=== PATIENT | female | born 1930 | race Caucasian/White ===

== ENCOUNTER 2016-06-15 09:38 | Outpatient (CLI) | payer MEDICARE ==
[2016-06-15 10:15] LABS: ALT (SGPT) 22 U/L (0-55); AST (SGOT) 27 U/L (5-34); Albumin 3.9 g/dL (3.4-4.8); Alkaline Phosphatase 64 U/L (40-150); Anion Gap 12 mmol/L (10-20); BUN (Urea Nitrogen) 16 mg/dL (9.8-20.1); Bilirubin, Total 0.8 mg/dL (0.2-1.2); Calc. Creatinine Clearance 0 mL/min (70-130); Calcium 9.1 mg/dL (7.8-10.44); Carbon Dioxide 28 mmol/L (23-31); Cardiac Risk 2.4 (Less than 4.5); Chloride 103 mmol/L (98-107); Cholesterol 134 mg/dL (< 200 Desired); Estimated GFR-MDRD 48; Globulin 2.8 g/dL (2.4-3.5); Glucose 92 mg/dL (83-110); HDL Cholesterol 56 mg/dL (>60 Neg Risk); LDL Cholesterol, Calculated 62 mg/dL; Potassium 4.4 mmol/L (3.5-5.1); Protein, Total 6.7 g/dL (5.8-8.1); Sodium 139 mmol/L (136-145); Triglycerides 79 mg/dL (Less than 150)
== END 2016-06-15 09:39 | disposition home or self-care (01) ==
LOC: MADLAB 09:38
PROVIDERS: ATTEND Internal Medicine Cardiovascular Disease
DX: E78.00 Pure hypercholesterolemia, unspecified (principal)
CPT/HCPCS: 36415; 80053; 80061

== ENCOUNTER 2017-03-21 09:06 | Emergency (ER) | payer MEDICARE ==
[2017-03-21 10:30] LABS: Bilirubin Negative (Negative); Blood, Urine Negative (Negative); Clarity Clear (Clear); Glucose, Urine (Dipstick) Negative (Negative); Leukocyte Negative (Negative); Nitrite Negative (Negative); Protein, Urine (Dipstick) 30 mg/dL (Neg-Trace); RBC/HPF 0-3 HPF (0-3); Specific Gravity, Urine 1.015 (1.005-1.030); pH, Urine 8.5 (5.0-9.0)
[2017-03-21 10:31] LABS: Bacteria/HPF Rare-Few HPF (None Seen); Squamous Epithelial 0-3 HPF (0-3); WBC/HPF 0-3 HPF (0-3)
[2017-03-21] MEDS ORDERED: Iopamidol 370 76% 100 ML VIAL ONE (10:31)
[2017-03-21 10:51] LABS: #Basophils 0.1 thou/uL (0.0-0.2); #Eosinphils 0.4 thou/uL (0.0-0.7); #Lymphocytes 1.9 thou/uL (1.20-3.40); #Monocytes 0.9 thou/uL (0.11-0.59); #Neutrophils 5.2 thou/uL (1.40-6.50); %Basophils 0.8 % (0.0-1.0); %Eosinophils 4.6 % (0.0-10.0); %Lymphocytes 22.8 % (21.0-51.0); %Monocytes 10.7 % (0.0-10.0); %Neutrophils 61.1 % (42.0-75.0); Hemoglobin 12.5 g/dL (12.0-16.0); Mean Corpuscular HGB CONC 32.5 g/dL (32.0-36.0); Mean Corpuscular Hemoglobin 32.6 pg (27.0-31.0); Mean Corpuscular Volume 100.4 fl (81.0-99.0); Mean Platelet Volume 8.7 fL (7.4-10.4); Platelet Count 150 thou/uL (130-400); RBC Distribution Width 11.9 % (11.5-14.5); Red Blood Cell (RBC) Count 3.84 mill/uL (4.20-5.40); White Blood Cell (WBC) Count 8.5 thou/uL (4.8-10.8)
--- NOTE | 2017-03-21 11:03 | RAD ---
PORTABLE CHEST ONE VIEW: 03/21/2017 10:27 a.m. HISTORY: Upper abdominal pain. COMPARISON: 01/09/2015 FINDINGS: Changes of median sternotomy are again seen. The heart is enlarged. A left-sided pacemaker device r emains in place. The lungs are well expanded without focal areas of consolidation, pneumothorax, fra nk pulmonary edema, or pleural effusions. IMPRESSION: No radiographic evidence of an acute cardiopulmonary process. POS: [facility]
[2017-03-21 11:10] LABS: ALT (SGPT) 17 U/L (8-55); AST (SGOT) 28 U/L (5-34); Albumin 3.7 g/dL (3.4-4.8); Alkaline Phosphatase 61 U/L (40-150); Anion Gap 13 mmol/L (10-20); BUN (Urea Nitrogen) 14 mg/dL (9.8-20.1); Bilirubin, Total 0.7 mg/dL (0.2-1.2); Calc. Creatinine Clearance 0 mL/min (70-130); Calcium 8.8 mg/dL (7.8-10.44); Carbon Dioxide 28 mmol/L (23-31); Chloride 105 mmol/L (98-107); Estimated GFR-MDRD 65; Globulin 3.2 g/dL (2.4-3.5); Glucose 107 mg/dL (83-110); Lipase 14 U/L (8-78); Potassium 3.9 mmol/L (3.5-5.1); Protein, Total 6.9 g/dL (6.0-8.3); Sodium 142 mmol/L (136-145)
[2017-03-21] MEDS ORDERED: Ketorolac Tromethamine 30 MG/ML VIAL ONE (11:30)
[2017-03-21] MEDS ORDERED: Ondansetron HCl/PF 4 MG/2 ML Vial ONE (11:30)
--- NOTE | 2017-03-21 14:07 | CT ---
CTA ABDOMEN AND PELVIS WITH IV AND ENTERIC CONTRAST: 03/21/2017 PROVIDED CLINICAL HISTORY: Right upper quadrant pain. COMPARISON: 12/30/2014 FINDINGS: The visualized lung bases are free of significant opacity. There is a large hiatal hernia, containin g the majority of the stomach, similar to prior study. The gallbladder is conspicuously distended. There is apparent gallbladder wall thickening and possib ly minimal pericholecystic inflammatory fat stranding. There is no evidence for intrahepatic or extr ahepatic biliary ductal dilatation. The liver, spleen, pancreas, kidneys, and adrenal glands demonst rate no acute abnormality. Stable, nonobstructing left renal calculi are seen, measuring about 3 to 4 mm. There is no bowel dilatation, additional inflammatory fat stranding, free air, or lymph node enlargem ent apparent. There is trace free fluid present within the pelvis. The appendix is not distinctly i dentified, but there is no secondary evidence for acute appendicitis. Atherosclerotic vascular calcifications are noted involving the abdominal aorta and its branches. The osseous structures demonstrate no concerning osteoblastic or osteolytic lesions. There is a left inguinal hernia, which contains fat and a small amount of fluid, similar to the prior study. IMPRESSION: 1. Conspicuous gallbladder distention, along with apparent gallbladder wall thickening and possibly pericholecystic inflammatory fat stranding. Correlation with a right upper quadrant ultrasound or HI DA scan is recommended, as findings are concerning for acute cholecystitis. 2. Small amount of nonspecific free pelvic fluid. 3. Other chronic findings, as above. POS: [facility]
[2017-03-21] MEDS ORDERED: Sulfameth/Trimethoprim DS 800-160mg TAB ONE (15:23)
[2017-03-21] MEDS ORDERED: AMOXicillin 250 MG CAP ONE (15:23)
== END 2017-03-21 15:00 | disposition home or self-care (01) ==
LOC: MADERS 09:06
DX: K81.0 Acute cholecystitis (principal); E78.5 Hyperlipidemia, unspecified; G40.909 Epilepsy, unspecified, not intractable, without status epilepticus; I25.10 Atherosclerotic heart disease of native coronary artery without angina pectoris; I48.91 Unspecified atrial fibrillation; I10 Essential (primary) hypertension
CPT/HCPCS: 36415; 71010; 74177; 80053; 81001; 82150; 83690; 85025; 87086; 96374; 96375; J1885; J2405

== ENCOUNTER 2017-03-25 21:31 | Emergency (ER) | payer MEDICARE ==
[~2017-03-25 21:31] MED LIST: Sodium Chloride 0.9% 1,000 ML BAG ONE; Sodium Chloride 0.9% 100 ML BAG ONE
[2017-03-25] MEDS ORDERED: Morphine 4 MG/ML VIAL ONE (22:22)
[2017-03-25] MEDS ORDERED: Ketorolac Tromethamine 30 MG/ML VIAL ONE (22:23)
[2017-03-25] MEDS ORDERED: Ondansetron HCl/PF 4 MG/2 ML Vial ONE (22:23)
[2017-03-25] MEDS ORDERED: CEFAZOLIN 1 GM VIAL ONE ×2 (22:23→23:04)
[2017-03-25 22:32] LABS: PTT 69.2 SEC (22.9-36.1); Prothrombin Time 40.8 SEC (12.0-14.7)
--- NOTE | 2017-03-25 22:36 | RAD ---
AP VIEW OF THE CHEST: INDICATIONS: History of preop. COMPARISON: 03/21/2017 FINDINGS: Stable mild cardiomegaly. Midline sternotomy changes are similar appearing. A dual-lead pacemaker i s similar appearing. No focal consolidation is evident. No pleural effusion or pneumothorax is evid ent. IMPRESSION: No definite acute abnormality. POS: [facility]
[2017-03-25 22:43] LABS: ALT (SGPT) 18 U/L (8-55); Albumin 3.9 g/dL (3.4-4.8); Alkaline Phosphatase 59 U/L (40-150); CK (CPK) 153 U/L (29-168); Calc. Creatinine Clearance 0 mL/min (70-130); Calcium 9.2 mg/dL (7.8-10.44); Chloride 101 mmol/L (98-107); Estimated GFR-MDRD 42; Globulin 3.3 g/dL (2.4-3.5); Potassium 3.9 mmol/L (3.5-5.1); Protein, Total 7.2 g/dL (6.0-8.3); Sodium 136 mmol/L (136-145)
[2017-03-25 22:49] LABS: CKMB 1.5 ng/mL (0-6.6); Hemoglobin 12.1 g/dL (12.0-16.0); Mean Corpuscular HGB CONC 33.9 g/dL (32.0-36.0); Mean Corpuscular Hemoglobin 33.4 pg (27.0-31.0); Mean Corpuscular Volume 98.4 fl (81.0-99.0); Platelet Count 132 thou/uL (130-400); RBC Distribution Width 11.6 % (11.5-14.5); Red Blood Cell (RBC) Count 3.63 mill/uL (4.20-5.40); Troponin I Less than 0.010 ng/mL (< 0.028); White Blood Cell (WBC) Count 6.5 thou/uL (4.8-10.8)
[2017-03-25 22:55] LABS: Band 3 % (5-11); Lymphocytes 18 % (21-51); MDiff Complete? YES; Monocytes 3 % (0-10); Neutrophil 75 % (42-75)
[2017-03-25 23:18] LABS: AST (SGOT) 33 U/L (5-34); BUN (Urea Nitrogen) 10 mg/dL (9.8-20.1); Bilirubin, Total 0.3 mg/dL (0.2-1.2); Carbon Dioxide 25 mmol/L (23-31); Glucose 130 mg/dL (83-110)
[2017-03-25 23:21] LABS: Anion Gap 14 mmol/L (10-20)
== END 2017-03-25 23:10 | disposition short-term general hospital (02) ==
LOC: MADERS 21:31
DX: K81.0 Acute cholecystitis (principal); I11.0 Hypertensive heart disease with heart failure; I50.9 Heart failure, unspecified; R79.89 Other specified abnormal findings of blood chemistry; E78.5 Hyperlipidemia, unspecified; I25.10 Atherosclerotic heart disease of native coronary artery without angina pectoris; Z79.899 Other long term (current) drug therapy
CPT/HCPCS: 36415; 71010; 80053; 82553; 83880; 84484; 85025; 85610; 85652; 85730; 93005; 94760; 96365; 96375; J0690; J1885; J2270; J2405; J7050

== ENCOUNTER 2017-04-30 20:49 | Emergency (ER) | payer MEDICARE ==
[~2017-04-30 20:49] MED LIST changes: +Iopamidol 370 76% 100 ML VIAL ONE; -Sodium Chloride 0.9% 1,000 ML BAG ONE; -Sodium Chloride 0.9% 100 ML BAG ONE
[2017-04-30 22:04] LABS: #Eosinphils 0.2 thou/uL (0.0-0.7); #Lymphocytes 1.4 thou/uL (1.20-3.40); #Monocytes 0.6 thou/uL (0.11-0.59); #Neutrophils 6.2 thou/uL (1.40-6.50); %Basophils 0.6 % (0.0-1.0); %Eosinophils 2.7 % (0.0-10.0); %Lymphocytes 16.3 % (21.0-51.0); %Monocytes 7.3 % (0.0-10.0); %Neutrophils 73.1 % (42.0-75.0); Mean Corpuscular HGB CONC 33.1 g/dL (32.0-36.0); Mean Corpuscular Hemoglobin 33.2 pg (27.0-31.0); Mean Corpuscular Volume 100.2 fl (81.0-99.0); Mean Platelet Volume 8.8 fL (7.4-10.4); Platelet Count 126 thou/uL (130-400); RBC Distribution Width 12.6 % (11.5-14.5); Red Blood Cell (RBC) Count 3.61 mill/uL (4.20-5.40); White Blood Cell (WBC) Count 8.5 thou/uL (4.8-10.8)
[2017-04-30 22:05] LABS: Bilirubin Negative (Negative); Blood, Urine Negative (Negative); Clarity Clear (Clear); Glucose, Urine (Dipstick) Negative (Negative); Leukocyte Negative (Negative); Nitrite Negative (Negative); Protein, Urine (Dipstick) 30 mg/dL (Neg-Trace); Specific Gravity, Urine 1.015 (1.005-1.030); pH, Urine 8.5 (5.0-9.0)
[2017-04-30 22:09] LABS: INR-International Normal Ratio 1.6; PTT 29.6 SEC (22.9-36.1); Prothrombin Time 19.2 SEC (12.0-14.7)
[2017-04-30 22:09] LABS: Bacteria/HPF None Seen HPF (None Seen); RBC/HPF 0-3 HPF (0-3); Squamous Epithelial 0-3 HPF (0-3); WBC/HPF 0-3 HPF (0-3)
[2017-04-30 22:10] LABS: Other Microscopic Description Tr. Amor. Sed.
[2017-04-30 22:20] LABS: ALT (SGPT) 19 U/L (8-55); AST (SGOT) 30 U/L (5-34); Albumin 3.6 g/dL (3.4-4.8); Alkaline Phosphatase 69 U/L (40-150); Anion Gap 14 mmol/L (10-20); BUN (Urea Nitrogen) 20 mg/dL (9.8-20.1); Bilirubin, Total 0.7 mg/dL (0.2-1.2); Calc. Creatinine Clearance 0 mL/min (70-130); Carbon Dioxide 25 mmol/L (23-31); Chloride 102 mmol/L (98-107); Estimated GFR-MDRD 52; Glucose 130 mg/dL (83-110); Lipase 26 U/L (8-78); Potassium 4.3 mmol/L (3.5-5.1); Protein, Total 6.6 g/dL (6.0-8.3); Sodium 137 mmol/L (136-145)
--- NOTE | 2017-04-30 22:28 | RAD ---
PORTABLE CHEST: History: Nausea, vomiting. Comparison: 03-26-17 FINDINGS: Mild cardiomegaly with post op sternotomy change and pacemaker leads again noted. Lungs appear clear and unchanged. No evidence of edema or infiltrate. Mild vascular engorgement appears stable. IMPRESSION: No acute interval change. POS: [facility]
--- NOTE | 2017-04-30 23:06 | CT ---
CT ABDOMEN AND PELVIS WITH IV CONTRAST: Technique: Multiple axial tomograms were obtained through the abdomen and pelvis with IV enhancement. History: Abdominal pain. Comparison: 03-26-17 FINDINGS: Lung bases are clear. There is a fixed diaphragmatic hernia which was described previously and is unc hanged in size. Patient is post cholecystectomy since prior study. The liver and spleen are unremarkable. Minimal flu id density at the gallbladder bed without evidence of abscess. Small bowel loops show nonspecific distention without dilation. No evidence of small bowel obstructio n. Colon is unremarkable. Aorta normal caliber. Fat containing left inguinal hernia is again noted. Kidneys are unremarkable. No hydronephrosis. IMPRESSION: 1. Fixed diaphragmatic hernia again noted. 2. Left inguinal hernia again noted. 3. Post cholecystectomy since prior exam. 4. No acute intraabdominal process identified. POS: [facility]
== END 2017-04-30 23:55 | disposition home or self-care (01) ==
LOC: MADERS 20:49
DX: K40.30 Unilateral inguinal hernia, with obstruction, without gangrene, not specified as recurrent (principal); E78.5 Hyperlipidemia, unspecified; I48.91 Unspecified atrial fibrillation; I25.10 Atherosclerotic heart disease of native coronary artery without angina pectoris; I12.9 Hypertensive chronic kidney disease with stage 1 through stage 4 chronic kidney disease, or unspecified chronic kidney disease; N18.9 Chronic kidney disease, unspecified; Z79.82 Long term (current) use of aspirin; Z79.01 Long term (current) use of anticoagulants; Z79.899 Other long term (current) drug therapy
CPT/HCPCS: 36415; 51701; 71045; 74177; 80053; 81003; 81015; 83605; 83690; 85025; 85610; 85730; 87040; 94760; A4353

== ENCOUNTER 2017-06-11 09:45 | Outpatient (CLI) | payer MEDICARE ==
[2017-06-11 10:26] LABS: ALT (SGPT) 18 U/L (8-55); AST (SGOT) 27 U/L (5-34); Alkaline Phosphatase 77 U/L (40-150); Anion Gap 13 mmol/L (10-20); BUN (Urea Nitrogen) 17 mg/dL (9.8-20.1); Calc. Creatinine Clearance 0 mL/min (70-130); Calcium 9.4 mg/dL (7.8-10.44); Carbon Dioxide 28 mmol/L (23-31); Cardiac Risk 2.3 (Less than 4.5); Cholesterol 113 mg/dl (< 200 Desired); Estimated GFR-MDRD 50; Glucose 97 mg/dL (83-110); HDL Cholesterol 49 mg/dL (>60 Neg Risk); LDL Cholesterol, Calculated 50 mg/dL; Triglycerides 69 mg/dL (Less than 150)
[2017-06-11 13:40] LABS: Potassium 4.1 mmol/L (3.5-5.1)
[2017-06-11 13:42] LABS: Chloride 102 mmol/L (98-107)
[2017-06-11 14:08] LABS: Sodium 140 mmol/L (136-145)
== END 2017-06-11 09:46 | disposition home or self-care (01) ==
LOC: MADLAB 09:45
PROVIDERS: ATTEND Internal Medicine Cardiovascular Disease
DX: E78.00 Pure hypercholesterolemia, unspecified (principal)
CPT/HCPCS: 36415; 80053; 80061

== ENCOUNTER 2017-10-02 10:17 | Outpatient (CLI) | payer MEDICARE ==
[2017-10-02 10:57] LABS: #Basophils 0.1 thou/uL (0.0-0.2); #Eosinphils 0.3 thou/uL (0.0-0.7); #Lymphocytes 1.7 thou/uL (1.20-3.40); #Monocytes 0.6 thou/uL (0.11-0.59); #Neutrophils 2.4 thou/uL (1.40-6.50); %Basophils 1.3 % (0.0-1.0); %Eosinophils 5.8 % (0.0-10.0); %Lymphocytes 34.2 % (21.0-51.0); %Monocytes 11.1 % (0.0-10.0); %Neutrophils 47.7 % (42.0-75.0); Hemoglobin 12.9 g/dL (12.0-16.0); Mean Corpuscular HGB CONC 32.9 g/dL (32.0-36.0); Mean Corpuscular Hemoglobin 31.3 pg (27.0-31.0); Mean Corpuscular Volume 95.2 fL (78.0-98.0); Mean Platelet Volume 7.7 fL (7.4-10.4); Platelet Count 138 thou/uL (130-400); RBC Distribution Width 12.2 % (11.5-14.5); Red Blood Cell (RBC) Count 4.11 mill/uL (4.20-5.40); White Blood Cell (WBC) Count 4.9 thou/uL (4.8-10.8)
[2017-10-02 11:13] LABS: INR-International Normal Ratio 2.5; Prothrombin Time 27.2 SEC (12.0-14.7)
[2017-10-02 11:24] LABS: ALT (SGPT) 18 U/L (8-55); AST (SGOT) 28 U/L (5-34); Albumin 3.8 g/dL (3.4-4.8); Alkaline Phosphatase 58 U/L (40-150); Anion Gap 15 mmol/L (10-20); BUN (Urea Nitrogen) 16 mg/dL (9.8-20.1); Bilirubin, Direct 0.3 mg/dL (0.1-0.3); Bilirubin, Total 0.8 mg/dL (0.2-1.2); Calc. Creatinine Clearance 0 mL/min (70-130); Calcium 9.3 mg/dL (7.8-10.44); Carbon Dioxide 26 mmol/L (23-31); Cardiac Risk 2.3 (Less than 4.5); Chloride 102 mmol/L (98-107); Cholesterol 121 mg/dl (< 200 Desired); Estimated GFR-MDRD 49; Glucose 99 mg/dL (83-110); HDL Cholesterol 52 mg/dL (>60 Neg Risk); LDL Cholesterol, Calculated 54 mg/dL; Potassium 4.3 mmol/L (3.5-5.1); Protein, Total 6.8 g/dL (6.0-8.3); Sodium 139 mmol/L (136-145); Triglycerides 73 mg/dL (Less than 150)
== END 2017-10-02 10:18 | disposition home or self-care (01) ==
LOC: MADLABBHPM 10:17
PROVIDERS: ATTEND Internal Medicine Cardiovascular Disease
DX: Z51.81 Encounter for therapeutic drug level monitoring (principal); E78.00 Pure hypercholesterolemia, unspecified; I48.91 Unspecified atrial fibrillation; N18.3 Chronic kidney disease, stage 3 (moderate); E78.5 Hyperlipidemia, unspecified; Z79.01 Long term (current) use of anticoagulants
CPT/HCPCS: 36415; 80053; 80061; 82248; 85025; 85610

== ENCOUNTER 2017-10-23 10:51 | Outpatient (CLI) | payer MEDICARE ==
[2017-10-23 11:30] LABS: #Basophils 0.1 thou/uL (0.0-0.2); #Eosinphils 0.3 thou/uL (0.0-0.7); #Lymphocytes 2.1 thou/uL (1.20-3.40); #Monocytes 0.7 thou/uL (0.11-0.59); #Neutrophils 2.9 thou/uL (1.40-6.50); %Basophils 1.1 % (0.0-1.0); %Eosinophils 5.6 % (0.0-10.0); %Lymphocytes 34.9 % (21.0-51.0); %Monocytes 11.2 % (0.0-10.0); %Neutrophils 47.3 % (42.0-75.0); Hemoglobin 14.3 g/dL (12.0-16.0); Mean Corpuscular HGB CONC 33.4 g/dL (32.0-36.0); Mean Corpuscular Hemoglobin 32.1 pg (27.0-31.0); Mean Corpuscular Volume 96.1 fL (78.0-98.0); Mean Platelet Volume 7.9 fL (7.4-10.4); Platelet Count 162 thou/uL (130-400); RBC Distribution Width 12.3 % (11.5-14.5); Red Blood Cell (RBC) Count 4.45 mill/uL (4.20-5.40)
[2017-10-23 11:34] LABS: INR-International Normal Ratio 3.1; Prothrombin Time 31.6 SEC (12.0-14.7)
[2017-10-23 11:42] LABS: Anion Gap 15 mmol/L (10-20); BUN (Urea Nitrogen) 12 mg/dL (9.8-20.1); Calc. Creatinine Clearance 0 mL/min (70-130); Calcium 9.6 mg/dL (7.8-10.44); Carbon Dioxide 29 mmol/L (23-31); Chloride 100 mmol/L (98-107); Estimated GFR-MDRD 47; Glucose 94 mg/dL (83-110); Potassium 4.3 mmol/L (3.5-5.1); Sodium 140 mmol/L (136-145)
== END 2017-10-23 10:52 | disposition home or self-care (01) ==
LOC: MADLABBHPM 10:51
PROVIDERS: ATTEND Family Medicine
DX: K92.1 Melena (principal)
CPT/HCPCS: 36415; 80048; 85025; 85610

== ENCOUNTER 2018-04-18 20:03 | Emergency (ER) | payer MEDICARE ==
[~2018-04-18 20:03] MED LIST changes: -Iopamidol 370 76% 100 ML VIAL ONE; +Sodium Chloride 0.9% 1,000 ML BAG ONE
[2018-04-18 20:26] LABS: #Eosinphils 0.1 thou/uL (0.0-0.7); #Monocytes 0.9 thou/uL (0.11-0.59); #Neutrophils 10.8 thou/uL (1.40-6.50); %Basophils 0.3 % (0.0-1.0); %Eosinophils 0.5 % (0.0-10.0); %Lymphocytes 7.4 % (21.0-51.0); %Monocytes 6.9 % (0.0-10.0); %Neutrophils 84.9 % (42.0-75.0); Hemoglobin 12.8 g/dL (12.0-16.0); Mean Corpuscular HGB CONC 32.4 g/dL (32.0-36.0); Mean Corpuscular Hemoglobin 33.2 pg (27.0-31.0); Mean Corpuscular Volume 102.4 fL (78.0-98.0); Mean Platelet Volume 8.4 fL (7.4-10.4); Platelet Count 142 thou/uL (130-400); RBC Distribution Width 12.1 % (11.5-14.5); Red Blood Cell (RBC) Count 3.86 mill/uL (4.20-5.40); White Blood Cell (WBC) Count 12.8 thou/uL (4.8-10.8)
[2018-04-18 20:44] LABS: ALT (SGPT) 21 U/L (8-55); AST (SGOT) 28 U/L (5-34); Albumin 3.6 g/dL (3.4-4.8); Alkaline Phosphatase 57 U/L (40-150); Anion Gap 13 mmol/L (10-20); BUN (Urea Nitrogen) 20 mg/dL (9.8-20.1); Calc. Creatinine Clearance 0 mL/min (70-130); Calcium 8.3 mg/dL (7.8-10.44); Carbon Dioxide 26 mmol/L (23-31); Chloride 104 mmol/L (98-107); Estimated GFR-MDRD 57; Globulin 2.8 g/dL (2.4-3.5); Glucose 112 mg/dL (83-110); Lipase 4 U/L (8-78); Potassium 4.2 mmol/L (3.5-5.1); Protein, Total 6.4 g/dL (6.0-8.3); Sodium 139 mmol/L (136-145)
[2018-04-18] MEDS ORDERED: Acetaminophen 500 MG TAB ONE (20:46)
[2018-04-18 21:04] LABS: Bilirubin Negative (Negative); Blood, Urine Trace (Negative); Clarity Clear (Clear); Glucose, Urine (Dipstick) Negative (Negative); Leukocyte Negative (Negative); Nitrite Negative (Negative); Protein, Urine (Dipstick) Trace mg/dL (Neg-Trace); Urobilinogen 0.2 mg/dL (0.2-1.0)
[2018-04-18 21:07] LABS: Bacteria/HPF Rare-Few HPF (None Seen); RBC/HPF 0-3 HPF (0-3); Squamous Epithelial 0-3 HPF (0-3); WBC/HPF 0-3 HPF (0-3)
[2018-04-18] MEDS ORDERED: Ondansetron PF 4 MG/2 ML Vial ONE (21:17)
[2018-04-18] MEDS ORDERED: Promethazine 25 MG TAB ONE (21:17)
[2018-04-18] MEDS ORDERED: Promethazine HCl 25 MG/ML VIAL ONE (21:17)
== END 2018-04-18 22:54 | disposition home or self-care (01) ==
LOC: MADERS 20:03
DX: K52.9 Noninfective gastroenteritis and colitis, unspecified (principal); E78.5 Hyperlipidemia, unspecified; I25.10 Atherosclerotic heart disease of native coronary artery without angina pectoris; I48.91 Unspecified atrial fibrillation; I12.9 Hypertensive chronic kidney disease with stage 1 through stage 4 chronic kidney disease, or unspecified chronic kidney disease; N18.9 Chronic kidney disease, unspecified
CPT/HCPCS: 51701; 80053; 81003; 81015; 83605; 83690; 85025; 96361; 96374; J2405; J2550; J7050

== ENCOUNTER 2018-10-07 08:37 | Outpatient (CLI) | payer MEDICARE ==
--- NOTE | 2018-10-07 11:11 | CT ---
CT CHEST WITHOUT COTNRAST: HISTORY: Chest pain in the region of the pacemaker. FINDINGS: Absence of IV contrast reduces the sensitivity of the exam, particularly for the evaluation of medias tinal, hilar, and vascular structures. There are changes of median sternotomy. Artifact surrounding the pacemaker in the left upper chest a lso reduces the sensitivity of the exam. No fluid or pericardial effusions are seen. No pneumothoraces, focal areas of consolidation, lung no dules, or masses are identified. There are degenerative changes in the spine. There are postop changes and hiatal hernia which are all seen on the previous study of 04/30/[address] scan of abdomen of 04/30/2017. No definite evidence of a fluid collection is seen in the region of the left pacemaker. There are nonobstructive renal calculi in the visualized portions of the left kidney. Calcified gran ulomas are present in the spleen. The patient is post cholecystectomy. IMPRESSION: The etiology of the patient's chest pain is not evident on this exam. POS: [facility]
== END 2018-10-07 08:38 | disposition home or self-care (01) ==
LOC: MADCT 08:37
PROVIDERS: ATTEND Nurse Practitioner Family
DX: R07.9 Chest pain, unspecified (principal)
CPT/HCPCS: 71250

== ENCOUNTER 2019-05-15 09:44 | Outpatient (CLI) | payer MEDICARE ==
[2019-05-15 10:12] LABS: INR-International Normal Ratio 2.9; Prothrombin Time 29.7 SEC (12.0-14.7)
--- NOTE | 2019-05-15 10:15 | RAD ---
EXAM: Chest 2 views: HISTORY: Shortness of breath COMPARISON: 10/13/2014 FINDINGS: Stable large hiatal hernia. Postop midline sternotomy, valvular replacement, and left ICD. Heart size:Borderline enlarged. Lungs:Clear of acute process. Atherosclerotic changes of the aorta. No confluent pneumonia, overt edema, pleural effusion, pneumothorax, or other significant acute proce ss. IMPRESSION: Stable-appearing chest. Atherosclerosis of the aorta. No acute intrathoracic disease.
== END 2019-05-15 09:45 | disposition home or self-care (01) ==
LOC: MADLABBHPM 09:44
PROVIDERS: ATTEND Internal Medicine Cardiovascular Disease
DX: R06.02 Shortness of breath (principal); I70.0 Atherosclerosis of aorta
CPT/HCPCS: 36415; 71046; 85610

== ENCOUNTER 2019-09-16 06:09 | Inpatient (IN) | payer MEDICARE, OTHER ==
[2019-09-16] MEDS ORDERED: Cyclobenzaprine 10 MG TAB PO PRN (21:18)
[2019-09-16] MEDS ORDERED: Amlodipine 5 MG TAB PO SCH (21:45)
[2019-09-16] MEDS ORDERED: hydrALAZINE 10 MG TAB PO SCH (21:45)
[2019-09-16] MEDS ORDERED: Simvastatin 20 MG TAB PO SCH (21:45)
[2019-09-16] MEDS ORDERED: lamoTRIgine 25 MG TAB PO SCH (22:30)
[2019-09-16] MEDS ORDERED: Senokot S 8.6-50 MG TAB PO SCH (22:30)
[2019-09-16] MEDS ORDERED: PHOS-NAK 1 PKT PACK PO SCH (22:30)
[2019-09-16] MEDS: Acetaminophen 500 MG TAB PO PRN (22:54)
[2019-09-17 05:47] LABS: INR-International Normal Ratio 1.2; Prothrombin Time 14.7 sec (12.0-14.7)
[2019-09-17 05:56] LABS: ALT (SGPT) 224 U/L (8-55); AST (SGOT) 136 U/L (5-34); Albumin 2.8 g/dL (3.4-4.8); Alkaline Phosphatase 106 U/L (40-110); Anion Gap 12 mmol/L (10-20); BUN (Urea Nitrogen) 12 mg/dL (9.8-20.1); Bilirubin, Total 0.8 mg/dL (0.2-1.2); Calc. Creatinine Clearance 54 mL/min (70-130); Calcium 8.1 mg/dL (7.8-10.44); Carbon Dioxide 27 mmol/L (23-31); Chloride 101 mmol/L (98-107); Estimated GFR-MDRD 64; Globulin 2.5 g/dL (2.4-3.5); Glucose 124 mg/dL (83-110); Potassium 4.2 mmol/L (3.5-5.1); Protein, Total 5.3 g/dL (6.0-8.3); Sodium 136 mmol/L (136-145)
[2019-09-17 05:59] LABS: Hemoglobin 8.1 g/dL (12.0-16.0); Lymphocytes 20 % (21-51); MDiff Complete? YES; Mean Corpuscular Hemoglobin 34.1 pg (27.0-31.0); Mean Corpuscular Volume 100.1 fL (78.0-98.0); Mean Platelet Volume 9.3 fL (7.4-10.4); Monocytes 9 % (0-10); Neutrophil 71 % (42-75); Platelet Count 111 thou/uL (130-400); RBC Distribution Width 12.1 % (11.5-14.5); Red Blood Cell (RBC) Count 2.38 mill/uL (4.20-5.40); White Blood Cell (WBC) Count 9.8 thou/uL (4.8-10.8)
[2019-09-17] MEDS ORDERED: Fleet Enema 133 ML BOT PR SCH (08:15)
[2019-09-17] MEDS: Ondansetron ODT 4 MG TAB PO PRN ×2 (08:54→18:21)
[2019-09-17] MEDS: Amlodipine 5 MG TAB PO SCH ×2 (09:00→20:33)
[2019-09-17] MEDS: hydrALAZINE 10 MG TAB PO SCH ×2 (09:00→20:33)
[2019-09-17] MEDS: Aspirin 81 mg Enteric Coated Tablet PO SCH (10:14)
[2019-09-17] MEDS: Propafenone HCl 150 MG TAB PO SCH ×3 (10:14→20:42)
[2019-09-17] MEDS: PHOS-NAK 1 PKT PACK PO SCH ×2 (10:14→20:31)
[2019-09-17] MEDS: Furosemide 20 MG TAB PO SCH (10:16)
[2019-09-17] MEDS: Polyethylene Glycol 3350 17 GM Packet PO SCH (10:17)
[2019-09-17] MEDS: Senokot S 8.6-50 MG TAB PO SCH ×2 (10:17→20:31)
[2019-09-17] MEDS: Acetaminophen/Codeine 30-300mg Tablet PO PRN (10:30)
--- NOTE | 2019-09-17 11:04 | HP ---
Admitted to [facility] on the evening of 09/16/2019. CHIEF COMPLAINT: Weakness following left hip fracture and repair. HISTORY OF PRESENT ILLNESS: The patient is an 89-year-old white female, who is independent of all her ADLs and lives by herself. The patient has a history of chronic atrial fibrillation, for which she is on anticoagulants and the rate is controlled. She also has hypertension, aortic stenosis, for which she underwent an aortic valve replacement, bioprosthetic valve, and she has chronic kidney disease. The patient was at her home and was sweeping the steps and was on the last step when she fell landing on her left hip. She was able to get back inside, but then she had continual pain in the hip and ended up calling for help with the neighbor and then EMS was summoned and she was taken to the emergency room. On evaluation, she was found to have a left femoral neck fracture. She was hospitalized at [facility] on 09/12/2019. Her PT was prolonged due to the warfarin. Warfarin was held and then after PT, INR corrected, she was taken to surgery on 09/14/2019 and underwent a left hip hemiarthroplasty by Orthopedic surgeon, Dr. Soto Eldridge. Surgery went very well and postop course was unremarkable. She said that she was transferred on the evening of 09/15 to [facility] for physical therapy. The patient said she has been up in a chair, really not done much walking. She is allowed to weightbear on that left leg as tolerated. The patient was seen early on the morning of 09/16 and related the history of what had happened to her regarding the fall. With the fall, there was no injury to her head or loss of consciousness. The patient said she is doing better just sore in that left hip and activities have been very restricted. She says her bowels have not moved and she has asked to have an enema, does not think a suppository will be enough. PAST MEDICAL HISTORY: 1. Hypertension. 2. Hyperlipidemia. 3. Chronic kidney disease. 4. Atrial fibrillation, for which she is on warfarin and rate is controlled. 5. Aortic stenosis, for which she has undergone an aortic valve replacement with a bioprosthetic valve in June 2010. 6. The patient has venous insufficiency of the lower extremities. 7. GERD. 8. Generalized osteoarthritis. 9. 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 10. She has coronary artery disease, that is medically managed. 11. She had a colonoscopy in the past, that showed diverticulosis. 12. She has had a hiatal hernia repair, left inguinal hernia repair. 13. Hysterectomy. 14. Colonoscopy in 2014 showing diverticulosis. 15. Left inguinal hernia repair with mesh in April 2017. 16. Left femoral hernia repair in November 2017. 17.Seizure disorder PRESENT MEDICINES: 1. Acetaminophen 500 mg every 6 hours p.r.n. 2. Tylenol No. 3 one or two every 4 hours as needed for pain. 3. DuoNeb every 4 hours as needed for wheezing. 4. Amlodipine 5 mg b.i.d. 5. Aspirin 81 mg daily. 6. Caltrate D 600/200 one daily. 7. Cyclobenzaprine 5 mg t.i.d. as needed. 8. Fish oil 1000 mg daily. 9. Glucosamine/chondroitin 1 b.i.d. 10. Hydralazine 10 mg b.i.d. 11. Lamictal 100 mg at bedtime. 12. Metoprolol succinate 200 mg daily. 13. Phos-NaK 1 pack b.i.d. 14. Zofran orally disintegrating tablets 4 mg every 4 hours as needed. 15. Pantoprazole 40 mg b.i.d. 16. MiraLAX 17 g daily. 17. Senokot-S 2 tabs b.i.d. 18. Simvastatin 20 mg at bedtime. 19. Warfarin 6 mg daily. 20. Rythmol 150 mg t.i.d. ALLERGIES: AMOXICILLIN, LISINOPRIL CAUSES HYPERKALEMIA. REVIEW OF SYSTEMS: GENERAL: The patient has had no fever. No recent weight gain or loss. HEENT: Head and neck, no complaints. Eyes, no change in her vision. Eyes, ears, nose, and throat, no complaints. PULMONARY: No shortness of breath. CARDIOVASCULAR: No chest pain. GI: No vomiting. She had a little nausea yesterday. She said her bowels have not moved for several days. : No complaints. MUSCULOSKELETAL: Complains of pain in the left hip. NEUROPSYCHIATRIC: No complaints. ADLs at home, she is independent of all her ADLs. Continent of stools and urine. HABITS: Alcohol, none. Tobacco, none. SOCIAL HISTORY: The patient is a and lives at her home alone. PHYSICAL EXAMINATION: GENERAL: Shows a very pleasant 89-year-old white female, who looks younger than her stated age. VITAL SIGNS: Show temperature 98.1, pulse 62, respirations 16, O2 saturation 94 % on room air, blood pressure 109/57. Her weight is 160. Her height is 65 inches. HEENT: Head, normocephalic and atraumatic. Eyes, pupils are equal, round, and reactive. Ears, normal. Nose, normal. Mouth and throat, normal. NECK: Carotids are equal and strong. No bruits. LUNGS: Clear. HEART: Regular rate with a grade 3/6 systolic ejection murmur heard best over the aortic area. ABDOMEN: Soft with no organomegaly. No areas of tenderness. MUSCULOSKELETAL AND EXTREMITIES: Left hip, there is a vertical incision along the lateral proximal hip with an overlying dressing. There is no drainage out from the dressing. There is no surrounding redness. There is bruising in the hip more posteriorly. Distal extremities showed no edema. NEUROLOGIC: The patient is alert and oriented x3. She has no focal weakness other than the increased weakness on the left leg from the fracture and the generalized weakness. IMPRESSION: 1. Weakness and gait abnormality. a. Following a fall on 09/11 and fracture of the left hip and repair. 2. Left femoral neck fracture. a. Secondary to a fall on 09/11. b. Status post left hip hemiarthroplasty on 09/14/2019 by orthopedic surgeon , Soto Eldridge. c. Doing very well for her 3rd postop day. 3. Hypertension, controlled. 4. Chronic atrial fibrillation. a. On chronic anticoagulation with Coumadin. b. Rate controlled. 5. Aortic stenosis. a. Status post aortic valve replacement with a bioprosthetic valve in 2010. 6. Hyperlipidemia. 7. Chronic kidney disease. 8. Gastroesophageal reflux disease. 9. Constipation. 10.Seizure disorder PLAN: The patient has been admitted to [facility] for purpose of PT and OT and continued postop care, this now being her 3rd day. She is doing very well. We will continue the Senokot and the MiraLAX for the constipation. She has asked for an enema, that we will use and see if this will help. May be up in a chair as tolerated. PT and OT will evaluate. She may bear weight on that left leg as tolerated. Pharmacy will help with management of her Coumadin and monitoring the INR to ensure that she stays therapeutic. CODE STATUS: DNR. Job ID: [id number] MTDD
[2019-09-17] MEDS: Calcium Carbonate 600 MG + Vit D TAB PO SCH (11:25)
[2019-09-17] MEDS: Fish Oil 1,000 MG CAP PO SCH (11:26)
[2019-09-17] MEDS: Warfarin Sodium 2 MG TAB PO SCH (17:25)
[2019-09-17] MEDS ORDERED: Bisacodyl 10 MG SUPP PR PRN (18:38)
[2019-09-17] MEDS: lamoTRIgine 25 MG TAB PO SCH (20:31)
[2019-09-17] MEDS ORDERED: Simvastatin 20 MG TAB PO SCH (21:00)
[2019-09-18] MEDS: Acetaminophen/Codeine 30-300mg Tablet PO PRN (01:27)
[2019-09-18 05:51] LABS: INR-International Normal Ratio 1.3; Prothrombin Time 16.3 sec (12.0-14.7)
[2019-09-18 05:59] LABS: Band 5 % (5-11); Hemoglobin 7.6 g/dL (12.0-16.0); Lymphocytes 11 % (21-51); MDiff Complete? YES; Mean Corpuscular HGB CONC 32.9 g/dL (32.0-36.0); Mean Corpuscular Hemoglobin 33.2 pg (27.0-31.0); Mean Corpuscular Volume 100.8 fL (78.0-98.0); Mean Platelet Volume 9.5 fL (7.4-10.4); Monocytes 3 % (0-10); Neutrophil 81 % (42-75); Platelet Count 131 thou/uL (130-400); RBC Distribution Width 12.6 % (11.5-14.5); Red Blood Cell (RBC) Count 2.29 mill/uL (4.20-5.40); White Blood Cell (WBC) Count 10.5 thou/uL (4.8-10.8)
[2019-09-18 06:00] LABS: ALT (SGPT) 160 U/L (8-55); AST (SGOT) 79 U/L (5-34); Albumin 2.7 g/dL (3.4-4.8); Alkaline Phosphatase 110 U/L (40-110); Anion Gap 10 mmol/L (10-20); BUN (Urea Nitrogen) 12 mg/dL (9.8-20.1); Calc. Creatinine Clearance 51 mL/min (70-130); Carbon Dioxide 29 mmol/L (23-31); Chloride 100 mmol/L (98-107); Estimated GFR-MDRD 60; Globulin 2.5 g/dL (2.4-3.5); Glucose 118 mg/dL (83-110); Potassium 4.3 mmol/L (3.5-5.1); Protein, Total 5.2 g/dL (6.0-8.3); Sodium 135 mmol/L (136-145)
[2019-09-18] MEDS: hydrALAZINE 10 MG TAB PO SCH ×2 (07:38→21:18)
[2019-09-18] MEDS: Amlodipine 5 MG TAB PO SCH ×2 (07:38→21:17)
[2019-09-18] MEDS: Furosemide 20 MG TAB PO SCH (08:15)
[2019-09-18] MEDS: Polyethylene Glycol 3350 17 GM Packet PO SCH (08:15)
[2019-09-18] MEDS: Fish Oil 1,000 MG CAP PO SCH (08:15)
[2019-09-18] MEDS: PHOS-NAK 1 PKT PACK PO SCH ×2 (08:15→21:19)
[2019-09-18] MEDS: Senokot S 8.6-50 MG TAB PO SCH ×2 (08:15→21:19)
[2019-09-18] MEDS: Calcium Carbonate 600 MG + Vit D TAB PO SCH (08:15)
[2019-09-18] MEDS: Propafenone HCl 150 MG TAB PO SCH ×3 (08:15→21:18)
[2019-09-18] MEDS: Aspirin 81 mg Enteric Coated Tablet PO SCH (08:15)
--- NOTE | 2019-09-18 11:03 | PRG ---
DATE OF SERVICE: 09/18/2019 SUBJECTIVE: The patient says she is feeling better today. Still a little sore in that left hip. Yesterday, she had received an enema per her request and only had some small results. She felt kind of gassy and bloated yesterday. Later in the day, just had another small bowel movement. This morning, she says her stomach feels better. She does not feel as bloated. She is not nauseated this morning. OBJECTIVE: GENERAL: The patient is lying in bed, alert, appears comfortable, in no distress. VITAL SIGNS: Her temperature is 98.5, pulse 70, respirations are 16, O2 saturation 93% on room air, blood pressure 108/61. LUNGS: Clear. HEART: Regular rate. ABDOMEN: Has good bowel sounds. Abdomen is soft, nontender. EXTREMITIES: Incision of the left hip, dressing is dry. Lower extremities, no edema. LABORATORY DATA: H and H this morning 7.6 and 23.1, white cell count 10,500 with 81% segs, 5% bands, 11% lymphocytes, and a platelet count of 131,000. Sodium 135, potassium 4.3, AST down to 79, ALT down to 160. ASSESSMENT: 1. Weakness and gait abnormality. a. Following a fall on 09/11 and fracture of the left hip and repair. 2. Left femoral neck fracture. a. Secondary to a fall on 09/11. b. Status post left hip hemiarthroplasty on 09/14/2019 by orthopedic surgeon , Dr. Soto Eldridge. c. Doing well for her fourth postoperative day. 3. Hypertension, controlled. 4. Chronic atrial fibrillation. a. On chronic anticoagulation with Coumadin. b. INR not yet therapeutic, but has only recently been started on Coumadin. c. Rate controlled. 5. Aortic stenosis. a. Status post valve replacement with bioprosthetic valve on 07/13/2010. 6. Hyperlipidemia. 7. Chronic kidney disease. 8. Gastroesophageal reflux disease, controlled. 9. Constipation. 10. Seizure disorder. 11. Abnormal liver function studies. a. ALT and AST decreased. b. Etiology of the transient elevation of the liver enzymes not known, but improving. Simvastatin has been stopped. 12. Anemia. a. Secondary to blood loss from the hip fracture and surgical repair. b. Hemoglobin this morning 7.6 as of 09/17. PLAN: The patient is trying to minimize the narcotics, as they are the cause of the constipation. She is on Senokot S and MiraLAX, and has Dulcolax suppository, if needed. Increase activities within her tolerance. We will continue to follow her H and H. Job ID: [id number] MTDD
[2019-09-18 12:23] LABS: Bilirubin Negative (Negative); Blood, Urine Negative (Negative); Clarity Clear (Clear); Glucose, Urine (Dipstick) Negative (Negative); Ketone, Urine Negative (Negative); Leukocyte Negative (Negative); Nitrite Negative (Negative); Protein, Urine (Dipstick) Negative (Neg-Trace); Specific Gravity, Urine 1.015 (1.005-1.030); pH, Urine 5.5 (5.0-9.0)
[2019-09-18 12:26] LABS: Bacteria/HPF Rare-Few HPF (None Seen); RBC/HPF 0-3 HPF (0-3); Squamous Epithelial 0-3 HPF (0-3); WBC/HPF 0-3 HPF (0-3)
[2019-09-18] MEDS: Warfarin Sodium 2 MG TAB PO SCH (16:41)
--- NOTE | 2019-09-18 17:46 | RAD ---
PORTABLE CHEST ONE VIEW: 09/18/19 at 5:33 p.m. HISTORY: Fever, bodyaches and chills. COMPARISON: 09/12/19. FINDINGS: Changes of median sternotomy and left sided pacemaker device are again seen. The heart size is normal . The aorta is tortuous. The lungs are well expanded without lobar consolidation, pneumothoraces or p leural effusions. IMPRESSION: No acute process. POS: [facility]
[2019-09-18] MEDS: Acetaminophen 500 MG TAB PO PRN (18:07)
[2019-09-18] MEDS: lamoTRIgine 25 MG TAB PO SCH (21:17)
[2019-09-19] MEDS: Acetaminophen/Codeine 30-300mg Tablet PO PRN ×4 (00:19→20:37)
[2019-09-19 05:58] LABS: INR-International Normal Ratio 1.5; Prothrombin Time 17.7 sec (12.0-14.7)
[2019-09-19 06:10] LABS: ALT (SGPT) 126 U/L (8-55); AST (SGOT) 52 U/L (5-34); Albumin 2.8 g/dL (3.4-4.8); Alkaline Phosphatase 106 U/L (40-110); Anion Gap 11 mmol/L (10-20); BUN (Urea Nitrogen) 15 mg/dL (9.8-20.1); Bilirubin, Total 1.2 mg/dL (0.2-1.2); Calc. Creatinine Clearance 50 mL/min (70-130); Calcium 8.3 mg/dL (7.8-10.44); Carbon Dioxide 30 mmol/L (23-31); Chloride 97 mmol/L (98-107); Estimated GFR-MDRD 57; Globulin 2.6 g/dL (2.4-3.5); Glucose 111 mg/dL (83-110); Potassium 4.1 mmol/L (3.5-5.1); Protein, Total 5.4 g/dL (6.0-8.3); Sodium 134 mmol/L (136-145)
[2019-09-19 06:21] LABS: Band 2 % (5-11); Eosinophils 2 % (0-10); Hemoglobin 7.6 g/dL (12.0-16.0); Lymphocytes 28 % (21-51); MDiff Complete? YES; Mean Corpuscular HGB CONC 33.3 g/dL (32.0-36.0); Mean Corpuscular Hemoglobin 33.4 pg (27.0-31.0); Mean Corpuscular Volume 100.5 fL (78.0-98.0); Mean Platelet Volume 9.4 fL (7.4-10.4); Monocytes 8 % (0-10); Neutrophil 60 % (42-75); Platelet Count 149 thou/uL (130-400); Platelet Morphology Comment Appears Adequate; Polychromasia SLIGHT = 2-3 cells (100X) (0-2/hpf); RBC Distribution Width 12.5 % (11.5-14.5); Red Blood Cell (RBC) Count 2.27 mill/uL (4.20-5.40); White Blood Cell (WBC) Count 9.3 thou/uL (4.8-10.8)
[2019-09-19] MEDS: Fish Oil 1,000 MG CAP PO SCH (08:00)
[2019-09-19] MEDS: Calcium Carbonate 600 MG + Vit D TAB PO SCH (08:00)
[2019-09-19] MEDS: Aspirin 81 mg Enteric Coated Tablet PO SCH (08:02)
[2019-09-19] MEDS: hydrALAZINE 10 MG TAB PO SCH ×2 (08:02→20:02)
[2019-09-19] MEDS: Amlodipine 5 MG TAB PO SCH ×2 (08:03→20:02)
[2019-09-19] MEDS: Propafenone HCl 150 MG TAB PO SCH ×3 (08:03→20:01)
[2019-09-19] MEDS: PHOS-NAK 1 PKT PACK PO SCH ×2 (08:04→20:01)
[2019-09-19] MEDS: Furosemide 20 MG TAB PO SCH (08:04)
[2019-09-19] MEDS: Polyethylene Glycol 3350 17 GM Packet PO SCH (08:05)
[2019-09-19] MEDS: Senokot S 8.6-50 MG TAB PO SCH ×2 (10:17→20:01)
[2019-09-19 12:19] LABS: SARS-CoV-2 MS2 Positive; SARS-CoV-2 N Gene Negative; SARS-CoV-2 S Gene Negative; SARS-CoV-2 orf1ab Negative
[2019-09-19 13:33] LABS: ALT (SGPT) 118 U/L (8-55); AST (SGOT) 48 U/L (5-34); Albumin 2.8 g/dL (3.4-4.8); Alkaline Phosphatase 110 U/L (40-110); Anion Gap 12 mmol/L (10-20); BUN (Urea Nitrogen) 16 mg/dL (9.8-20.1); Calc. Creatinine Clearance 49 mL/min (70-130); Calcium 8.3 mg/dL (7.8-10.44); Carbon Dioxide 28 mmol/L (23-31); Chloride 98 mmol/L (98-107); Estimated GFR-MDRD 56; Globulin 2.7 g/dL (2.4-3.5); Glucose 140 mg/dL (83-110); Potassium 4.2 mmol/L (3.5-5.1); Protein, Total 5.5 g/dL (6.0-8.3); Sodium 134 mmol/L (136-145)
[2019-09-19] MEDS: Warfarin Sodium 2 MG TAB PO SCH (16:47)
--- NOTE | 2019-09-19 16:49 | PRG ---
DATE OF SERVICE: 09/19/2019 SUBJECTIVE: The patient said she is feeling better today. Yesterday, she did not feel good. She complained of just severe fatigue, general achiness. She had no appetite and not much of a taste. She did not have any vomiting. Her bowels had moved only a little bit yesterday. She had a temperature elevation to 101.4. She had had some chills. The patient denied any increased pain in her hip. She underwent a chest x-ray, which was clear and showed no evidence of any infiltrate or fluid. Her white cell count yesterday morning was 10,500 with 81% segs, 5% bands, and 11% lymphocytes, and hemoglobin 7.6. Her urine showed negative nitrite, 0 to 3 WBCs. The patient had on exam, no identifiable source of infection and it was felt like she had a viral syndrome and certainly there was concern with her coming from a larger hospital with this COVID-19 pandemic. A viral panel was done and a COVID -19 nasal swab collected. The reports on these are pending. The urine culture collected on 09/17 had no growth. OBJECTIVE: GENERAL: The patient is in isolation and due to the concern for the COVID, she is being seen with personal protective equipment including bonnet, "N -19" face mask, gloves, gown, and shoe covers. The patient looks better. She is smiling and looks comfortable, and says she feels better. VITAL SIGNS: Her temperature this morning was 98.4, pulse 64, blood pressure 95 /52, respirations 18, O2 saturation 95% on room air. LUNGS: Clear. HEART: Regular rate. EXTREMITIES: Lower extremities have no edema. The incision of the left lateral hip is healing well. There is no surrounding redness. There is lot of bruising, particularly lateral and posterior to the hip. LABORATORY DATA: Today shows an INR has come up to 1.5. Her hemoglobin and hematocrit are 7.6 and 22.8 with a white cell count 9300 with 60% segs, 2% bands , 28% lymphocytes, and platelet count of a 149. Sodium 134, potassium 4.1, BUN 15 , creatinine 0.93, glucose 111. ALT has dropped further to 126. AST has dropped from a high of 136 to 52. Total bilirubin 1.2. Urine culture, no growth. ASSESSMENT: 1. Febrile illness. a. Suspect a viral syndrome. b. COVID-19 nasal swab and blood cultures obtained on the afternoon of . c. Feeling better with no fever as of 09/18. 2. Weakness and gait abnormality. a. Following a fall on 09/11 and fracture of the left hip and repair. 3. Left femoral neck fracture. a. Secondary to a fall on 09/11. b. Status post left hip hemiarthroplasty on 09/13 by orthopedic surgeon, Dr. Soto Eldridge. c. Doing well on her fifth postoperative day. 4. Hypertension. 5. Chronic atrial fibrillation. a. On chronic anticoagulation with Coumadin. b. INR gradually improved, but not yet therapeutic. c. Rate controlled. 6. Aortic stenosis. a. Status post valve replacement with bioprosthetic valve on 06/2010. 7. Hyperlipidemia. 8. Chronic kidney disease. 9. Gastroesophageal reflux disease, controlled. 10. Constipation. 11. Seizure disorder. 12. Abnormal liver function studies. a. ALT and AST continue to decrease. b. Etiology of the transient elevation of liver enzymes is not known. These are improving. Simvastatin has been stopped. 13. Anemia. a. Secondary to blood loss from the hip fracture and surgical repair. b. Hemoglobin on the morning of 09/17, 7.6, and 7.6 again on 09/18. PLAN: The patient is presently being treated symptomatically for the fever, which is felt to be a viral syndrome. No other ready source of infections seen. Chest x-ray is clear. The hip looks good with no evidence of infection. The urine is clear with no growth. Blood cultures are pending. She has been tested for COVID-19, but results of this are pending. In the interval, we will continue to keep the patient in isolation and staff will see her with personal protective equipment. Recheck studies in the morning. Job ID: [id number] [facility]
[2019-09-19] MEDS: lamoTRIgine 25 MG TAB PO SCH (20:03)
[2019-09-20] MEDS: Acetaminophen/Codeine 30-300mg Tablet PO PRN (00:28)
[2019-09-20 06:00] LABS: INR-International Normal Ratio 1.7; Prothrombin Time 19.6 sec (12.0-14.7)
[2019-09-20 06:10] LABS: #Basophils 0.1 thou/uL (0.0-0.2); #Eosinphils 0.6 thou/uL (0.0-0.7); #Lymphocytes 1.9 thou/uL (1.20-3.40); #Neutrophils 5.1 thou/uL (1.40-6.50); %Basophils 0.9 % (0.0-1.0); %Eosinophils 7.1 % (0.0-10.0); %Monocytes 11.2 % (0.0-10.0); %Neutrophils 58.9 % (42.0-75.0); Hemoglobin 7.4 g/dL (12.0-16.0); Mean Corpuscular HGB CONC 32.7 g/dL (32.0-36.0); Mean Corpuscular Hemoglobin 33.4 pg (27.0-31.0); Mean Corpuscular Volume 102.1 fL (78.0-98.0); Mean Platelet Volume 8.8 fL (7.4-10.4); Platelet Count 174 thou/uL (130-400); Red Blood Cell (RBC) Count 2.21 mill/uL (4.20-5.40); White Blood Cell (WBC) Count 8.6 thou/uL (4.8-10.8)
[2019-09-20] MEDS: Aspirin 81 mg Enteric Coated Tablet PO SCH (08:48)
[2019-09-20] MEDS: PHOS-NAK 1 PKT PACK PO SCH ×2 (08:48→20:10)
[2019-09-20] MEDS: Polyethylene Glycol 3350 17 GM Packet PO SCH (08:48)
[2019-09-20] MEDS: hydrALAZINE 10 MG TAB PO SCH ×2 (08:49→20:11)
[2019-09-20] MEDS: Propafenone HCl 150 MG TAB PO SCH ×3 (08:49→20:09)
[2019-09-20] MEDS: Calcium Carbonate 600 MG + Vit D TAB PO SCH (08:49)
[2019-09-20] MEDS: Fish Oil 1,000 MG CAP PO SCH (08:49)
[2019-09-20] MEDS: Furosemide 20 MG TAB PO SCH (08:50)
[2019-09-20] MEDS: Senokot S 8.6-50 MG TAB PO SCH ×2 (08:50→20:09)
[2019-09-20] MEDS: Amlodipine 5 MG TAB PO SCH ×2 (08:50→20:12)
[2019-09-20] MEDS: Warfarin Sodium 2 MG TAB PO SCH (17:18)
[2019-09-20] MEDS: lamoTRIgine 25 MG TAB PO SCH (20:09)
[2019-09-21 05:58] LABS: INR-International Normal Ratio 1.6; Prothrombin Time 19.2 sec (12.0-14.7)
[2019-09-21] MEDS: hydrALAZINE 10 MG TAB PO SCH ×2 (08:38→20:35)
[2019-09-21] MEDS: Amlodipine 5 MG TAB PO SCH ×2 (08:39→20:35)
[2019-09-21] MEDS: Calcium Carbonate 600 MG + Vit D TAB PO SCH (08:39)
[2019-09-21] MEDS: Aspirin 81 mg Enteric Coated Tablet PO SCH (08:39)
[2019-09-21] MEDS: Acetaminophen/Codeine 30-300mg Tablet PO PRN ×2 (08:40→23:29)
[2019-09-21] MEDS: Fish Oil 1,000 MG CAP PO SCH (08:40)
[2019-09-21] MEDS: PHOS-NAK 1 PKT PACK PO SCH ×2 (08:41→20:34)
[2019-09-21] MEDS: Propafenone HCl 150 MG TAB PO SCH ×3 (08:41→20:34)
[2019-09-21] MEDS: Senokot S 8.6-50 MG TAB PO SCH ×2 (08:41→20:34)
[2019-09-21] MEDS: Furosemide 20 MG TAB PO SCH (08:41)
[2019-09-21] MEDS: Polyethylene Glycol 3350 17 GM Packet PO SCH (08:41)
[2019-09-21] MEDS: Ondansetron ODT 4 MG TAB PO PRN (09:43)
--- NOTE | 2019-09-21 09:56 | PRG ---
DATE OF SERVICE: 09/21/2019 SUBJECTIVE: The patient says she still feels tired. She is not having a lot of pain. She just feels weak. She is having no breathing difficulty. She has had no fever. Her COVID-19 nasal swab was negative. Her isolation has been discontinued. OBJECTIVE: GENERAL: The patient is sitting up on the bedside commode. She is alert, talkative, appears in no distress. VITAL SIGNS: Her vital signs show a temperature of 98.4, pulse 61, blood pressure 106/55, respirations 18, O2 saturation 92% on room air. LUNGS: Clear. HEART: Regular rate. EXTREMITIES: No edema. Incision healing. LABORATORY DATA: Shows hemoglobin and hematocrit of 7.4 and 22.5, white cell count 8600 with 59% segs, 22% lymphocytes, and platelet count of a 174,000. ASSESSMENT: 1. Febrile illness, low-grade: a. No fever in the last 24 hours. COVID-19 test negative. Blood cultures have no growth x2. Urine culture, no growth. b. Probable viral syndrome. 2. General weakness and gait abnormality. a. Following a fall on 09/11 and fracture of the left hip and repair. 3. Left femoral neck fracture. a. Secondary to a fall on 09/11. b. Status post left hip hemiarthroplasty on 09/13 by orthopedic surgeon, Dr. Soto Eldridge. c. Doing well on 7th postop day. 4. Hypertension. 5. Chronic atrial fibrillation. a. On chronic anticoagulation with Coumadin. b. Rate controlled. c. INR not quite therapeutic, it is 1.6. 6. Aortic stenosis. a. Status post valve replacement with bioprosthetic valve on 06/2010. 7. Hyperlipidemia. 8. Chronic kidney disease. 9. Gastroesophageal reflux disease, controlled. 10. Constipation, controlled. 11. Seizure disorder. 12. Abnormal liver function studies. a. ALT and AST had continued to decrease. b. Etiology of the transient elevation of liver enzymes not known. These are improving. Simvastatin has been stopped. 13. Anemia. a. Secondary to blood loss from the fracture and surgical repair. b. Hemoglobin on 09/17, 7.6; 09/18, 7.6; and 09/20, 7.4. PLAN: Continue present care. Continue PT/OT. We will repeat liver studies and CBC in the morning. Job ID: [id number] MTDD
[2019-09-21 10:20] LABS: ALT (SGPT) 91 U/L (8-55); AST (SGOT) 41 U/L (5-34); Albumin 2.9 g/dL (3.4-4.8); Alkaline Phosphatase 149 U/L (40-110); Anion Gap 13 mmol/L (10-20); BUN (Urea Nitrogen) 15 mg/dL (9.8-20.1); Calc. Creatinine Clearance 53 mL/min (70-130); Calcium 8.6 mg/dL (7.8-10.44); Carbon Dioxide 27 mmol/L (23-31); Chloride 98 mmol/L (98-107); Estimated GFR-MDRD 61; Globulin 2.7 g/dL (2.4-3.5); Glucose 149 mg/dL (83-110); Potassium 4.4 mmol/L (3.5-5.1); Protein, Total 5.6 g/dL (6.0-8.3); Sodium 134 mmol/L (136-145)
[2019-09-21] MEDS: Warfarin Sodium 2 MG TAB PO SCH (17:22)
[2019-09-21] MEDS: lamoTRIgine 25 MG TAB PO SCH (20:34)
[2019-09-22 05:50] LABS: #Basophils 0.1 thou/uL (0.0-0.2); #Eosinphils 0.8 thou/uL (0.0-0.7); #Lymphocytes 2.1 thou/uL (1.20-3.40); #Monocytes 0.9 thou/uL (0.11-0.59); #Neutrophils 4.4 thou/uL (1.40-6.50); %Eosinophils 9.7 % (0.0-10.0); %Lymphocytes 25.8 % (21.0-51.0); %Monocytes 11.2 % (0.0-10.0); %Neutrophils 52.4 % (42.0-75.0); Hemoglobin 7.5 g/dL (12.0-16.0); Mean Corpuscular Hemoglobin 33.1 pg (27.0-31.0); Mean Corpuscular Volume 103.2 fL (78.0-98.0); Mean Platelet Volume 7.9 fL (7.4-10.4); Platelet Count 229 thou/uL (130-400); RBC Distribution Width 13.9 % (11.5-14.5); Red Blood Cell (RBC) Count 2.26 mill/uL (4.20-5.40); White Blood Cell (WBC) Count 8.3 thou/uL (4.8-10.8)
[2019-09-22 06:04] LABS: INR-International Normal Ratio 1.9; Prothrombin Time 21.7 sec (12.0-14.7)
[2019-09-22] MEDS: Acetaminophen/Codeine 30-300mg Tablet PO PRN ×2 (06:23→20:52)
[2019-09-22] MEDS: PHOS-NAK 1 PKT PACK PO SCH ×2 (08:16→20:54)
[2019-09-22] MEDS: Aspirin 81 mg Enteric Coated Tablet PO SCH (08:16)
[2019-09-22] MEDS: Fish Oil 1,000 MG CAP PO SCH (08:16)
[2019-09-22] MEDS: Propafenone HCl 150 MG TAB PO SCH ×3 (08:17→20:54)
[2019-09-22] MEDS: Calcium Carbonate 600 MG + Vit D TAB PO SCH (08:17)
[2019-09-22] MEDS: Furosemide 20 MG TAB PO SCH (08:17)
[2019-09-22] MEDS: Amlodipine 5 MG TAB PO SCH ×2 (08:17→20:54)
[2019-09-22] MEDS: hydrALAZINE 10 MG TAB PO SCH ×2 (08:17→20:53)
[2019-09-22] MEDS: Polyethylene Glycol 3350 17 GM Packet PO SCH (08:18)
[2019-09-22] MEDS: Senokot S 8.6-50 MG TAB PO SCH ×2 (08:18→21:00)
[2019-09-22] MEDS: [UNRECOGNIZED DRUG - OTHER] PO SCH ×2 (10:11→16:36)
--- NOTE | 2019-09-22 10:22 | PRG ---
DATE OF SERVICE: 09/22/2019 SUBJECTIVE: The patient says she is doing all right. She says she is just tired and feels a little short of breath with activities. She is having no orthopnea. No chest pain, and she has had no fever. OBJECTIVE: GENERAL: The patient is sitting on the edge of her bed, eating breakfast. She is alert. She appears pale, but she is not in any distress. VITAL SIGNS: Temperature 98.4, pulse 60, respirations 18, O2 saturation 95% on room air, blood pressure 109/61. LUNGS: Clear. HEART: Regular rate. EXTREMITIES: Incision along the left lateral hip is healing well. There is some bruising around the hip. There is no redness. LABORATORY DATA: Her H and H are 7.5 and 23.3, white cell count 8300, and platelet count 229. Sodium 134, potassium 4.4, BUN 15, creatinine 0.88, bilirubin 1.0. AST dropped to 41 from a high of 136 on 09/16; ALT 91, dropping from a high of 224 on 09/16; alkaline phos 149. ASSESSMENT: 1. Febrile illness, low-grade. No fever the last 48 hours. COVID-19 test negative. Blood cultures have no growth. Urine culture, no growth. a. Probable viral syndrome that is resolving as of 09/21. 2. Generalized weakness and gait abnormality. a. Following a fall on 09/11 and fracture of the left hip and repair. b. Improving. 3. Left femoral neck fracture. a. Secondary to a fall on 09/11. b. Status post left hemiarthroplasty on 09/13 by orthopedic surgeon, Dr. Soto Eldridge. c. Doing well as of 09/21. 4. Hypertension. 5. Chronic atrial fibrillation. a. On chronic anticoagulation with Coumadin. b. Rate controlled. 6. Aortic stenosis. a. Status post aortic valve replacement with bioprosthetic valve, 06/2010. 7. Hyperlipidemia. 8. Chronic kidney disease. 9. Gastroesophageal reflux disease, controlled. 10. Constipation, controlled. 11. Seizure disorder, controlled. 12. Abnormal liver function studies. a. Continued improvement as of 09/21. b. Etiology of the transient elevation of liver enzymes is not known. Simvastatin has been stopped. 13. Anemia. a. Secondary to blood loss from the fracture and surgical repair. b. Hemoglobin is stable at 7.5. Hemoglobin 7.4 on 09/20. PLAN: Continue present care. Continue PT and OT. Job ID: [id number] MTDD
[2019-09-22] MEDS: Ondansetron ODT 4 MG TAB PO PRN (17:34)
[2019-09-22] MEDS: Warfarin Sodium 2 MG TAB PO SCH (17:54)
[2019-09-22] MEDS: lamoTRIgine 25 MG TAB PO SCH (20:53)
[2019-09-23 07:08] LABS: INR-International Normal Ratio 1.6
[2019-09-23] MEDS: Amlodipine 5 MG TAB PO SCH ×2 (07:38→20:48)
[2019-09-23] MEDS: hydrALAZINE 10 MG TAB PO SCH ×2 (07:38→20:43)
[2019-09-23] MEDS: Aspirin 81 mg Enteric Coated Tablet PO SCH (08:06)
[2019-09-23] MEDS: Calcium Carbonate 600 MG + Vit D TAB PO SCH (08:06)
[2019-09-23] MEDS: Propafenone HCl 150 MG TAB PO SCH ×3 (08:06→20:48)
[2019-09-23] MEDS: Fish Oil 1,000 MG CAP PO SCH (08:06)
[2019-09-23] MEDS: Senokot S 8.6-50 MG TAB PO SCH ×2 (08:07→20:45)
[2019-09-23] MEDS: PHOS-NAK 1 PKT PACK PO SCH ×2 (08:07→20:45)
[2019-09-23] MEDS: Polyethylene Glycol 3350 17 GM Packet PO SCH (08:07)
[2019-09-23] MEDS: Furosemide 20 MG TAB PO SCH (08:07)
[2019-09-23] MEDS: Acetaminophen/Codeine 30-300mg Tablet PO PRN ×2 (08:50→23:14)
[2019-09-23] MEDS ORDERED: Preparation H Ointment 57 gram tube TOP PRN (09:00)
--- NOTE | 2019-09-23 09:39 | PRG ---
DATE OF SERVICE: 09/23/2019 SUBJECTIVE: Patient says she is feeling better today. States her bowels are moving well. She is having a little hemorrhoid that popped out. She has asked for some Preparation H for this. OBJECTIVE: GENERAL: The patient is sitting up in a chair. She looks better. She appears in no distress. VITAL SIGNS: Show a temperature of 98.3, pulse 61, respirations are 20, O2 saturation 93% on room air, blood pressure 102/44. LUNGS: Clear. HEART: Regular rate. EXTREMITIES: No edema. Incision healing well. LABORATORY DATA: INR today 1.6. ASSESSMENT: 1. Febrile illness, low grade. a. Blood cultures, no growth. Urine culture, no growth. COVID-19 not detected. b. Viral syndrome. c. Resolved as of 09/22. 2. Generalized weakness and gait abnormality. a. Following a fall on 09/11 and fracture of the left hip and repair. b. Improving. 3. Left femoral neck fracture. a. Secondary to a fall. b. Status post left hemiarthroplasty on 09/13 by orthopedic surgeon, Soto Eldridge. c. Doing well, walking about 12 feet in her room as of 09/22. 4. Hypertension, controlled. 5. Chronic atrial fibrillation. a. On chronic anticoagulation with Coumadin. b. Rate controlled. 6. Aortic stenosis. a. Status post aortic valve replacement with bioprosthetic valve in 06/2010. 7. Hyperlipidemia. 8. Chronic kidney disease. 9. Gastroesophageal reflux disease, controlled. 10. Constipation, controlled. 11. Seizure disorder. 12. Abnormal liver function studies. a. Continued improvement as of 09/21. b. Etiology of the transient elevation not known. Simvastatin has been stopped. 13. Anemia. a. Secondary to blood loss from the fracture and surgical repair. b. Hemoglobin 7.5 on 09/21. 14. External hemorrhoid. PLAN: Continue present care. Recheck CBC and basic metabolic panel tomorrow. Preparation H four times a day as needed. Job ID: [id number]
[2019-09-23 10:18] LABS: ALT (SGPT) 58 U/L (8-55); AST (SGOT) 24 U/L (5-34); Albumin 2.9 g/dL (3.4-4.8); Alkaline Phosphatase 128 U/L (40-110); Anion Gap 14 mmol/L (10-20); BUN (Urea Nitrogen) 16 mg/dL (9.8-20.1); Bilirubin, Total 0.9 mg/dL (0.2-1.2); Calc. Creatinine Clearance 46 mL/min (70-130); Calcium 8.5 mg/dL (7.8-10.44); Carbon Dioxide 25 mmol/L (23-31); Chloride 99 mmol/L (98-107); Estimated GFR-MDRD 53; Globulin 2.6 g/dL (2.4-3.5); Glucose 158 mg/dL (83-110); Protein, Total 5.5 g/dL (6.0-8.3); Sodium 133 mmol/L (136-145)
[2019-09-23] MEDS: Warfarin Sodium 2 MG TAB PO SCH (16:59)
[2019-09-23] MEDS: lamoTRIgine 25 MG TAB PO SCH (20:44)
[2019-09-24 05:46] LABS: INR-International Normal Ratio 1.7; Prothrombin Time 20.2 sec (12.0-14.7)
[2019-09-24 05:56] LABS: #Basophils 0.1 thou/uL (0.0-0.2); #Lymphocytes 2.1 thou/uL (1.20-3.40); #Monocytes 1.2 thou/uL (0.11-0.59); #Neutrophils 6.6 thou/uL (1.40-6.50); %Basophils 0.7 % (0.0-1.0); %Eosinophils 8.8 % (0.0-10.0); %Lymphocytes 19.4 % (21.0-51.0); %Monocytes 11.2 % (0.0-10.0); %Neutrophils 59.9 % (42.0-75.0); Hemoglobin 7.4 g/dL (12.0-16.0); Hypochromia SLIGHT = 6-15 cells (100X) (0-5/hpf); MDiff Complete? YES; Macrocytosis SLIGHT = 6-15 cells (100X) (0-5/hpf); Mean Corpuscular HGB CONC 31.4 g/dL (32.0-36.0); Mean Corpuscular Hemoglobin 33.1 pg (27.0-31.0); Mean Corpuscular Volume 105.5 fL (78.0-98.0); Mean Platelet Volume 7.4 fL (7.4-10.4); Platelet Count 251 thou/uL (130-400); Platelet Morphology Comment Appears Adequate; RBC Distribution Width 14.8 % (11.5-14.5); Red Blood Cell (RBC) Count 2.24 mill/uL (4.20-5.40); Stomatocytes SLIGHT = 2-5 cells (100X) (0-1/hpf)
[2019-09-24] MEDS: Acetaminophen/Codeine 30-300mg Tablet PO PRN ×2 (06:27→13:07)
[2019-09-24] MEDS: Ondansetron ODT 4 MG TAB PO PRN ×2 (06:27→08:57)
[2019-09-24] MEDS: Amlodipine 5 MG TAB PO SCH ×2 (08:23→20:12)
[2019-09-24] MEDS: hydrALAZINE 10 MG TAB PO SCH ×2 (08:24→20:11)
[2019-09-24] MEDS: Furosemide 20 MG TAB PO SCH (08:25)
[2019-09-24] MEDS: Propafenone HCl 150 MG TAB PO SCH ×3 (08:25→20:13)
[2019-09-24] MEDS: Senokot S 8.6-50 MG TAB PO SCH ×2 (08:25→20:12)
[2019-09-24] MEDS: Calcium Carbonate 600 MG + Vit D TAB PO SCH (08:26)
[2019-09-24] MEDS: Aspirin 81 mg Enteric Coated Tablet PO SCH (08:26)
[2019-09-24] MEDS: Fish Oil 1,000 MG CAP PO SCH (08:26)
[2019-09-24] MEDS: PHOS-NAK 1 PKT PACK PO SCH ×2 (08:26→20:12)
[2019-09-24] MEDS: Polyethylene Glycol 3350 17 GM Packet PO SCH (08:26)
[2019-09-24] MEDS ORDERED: Ferrous Gluconate 324 MG TAB PO SCH (09:00)
[2019-09-24] MEDS: Ferrous Gluconate 324 MG TAB PO SCH (16:24)
[2019-09-24] MEDS: Warfarin Sodium 7.5 MG TAB PO SCH (16:25)
[2019-09-24] MEDS: lamoTRIgine 25 MG TAB PO SCH (20:12)
[2019-09-25] MEDS: Acetaminophen/Codeine 30-300mg Tablet PO PRN ×2 (04:18→21:34)
[2019-09-25 05:52] LABS: INR-International Normal Ratio 1.7
[2019-09-25] MEDS: Furosemide 20 MG TAB PO SCH (08:16)
[2019-09-25] MEDS: hydrALAZINE 10 MG TAB PO SCH ×2 (08:17→21:32)
[2019-09-25] MEDS: Aspirin 81 mg Enteric Coated Tablet PO SCH (08:18)
[2019-09-25] MEDS: Fish Oil 1,000 MG CAP PO SCH (08:18)
[2019-09-25] MEDS: Propafenone HCl 150 MG TAB PO SCH ×3 (08:18→21:33)
[2019-09-25] MEDS: Calcium Carbonate 600 MG + Vit D TAB PO SCH (08:18)
[2019-09-25] MEDS: Amlodipine 5 MG TAB PO SCH ×2 (08:18→21:31)
[2019-09-25] MEDS: PHOS-NAK 1 PKT PACK PO SCH ×2 (08:18→21:33)
[2019-09-25] MEDS: Senokot S 8.6-50 MG TAB PO SCH ×2 (08:18→21:34)
[2019-09-25] MEDS: Ferrous Gluconate 324 MG TAB PO SCH ×2 (08:19→16:37)
[2019-09-25] MEDS: Polyethylene Glycol 3350 17 GM Packet PO SCH (08:54)
--- NOTE | 2019-09-25 12:43 | PRG ---
DATE OF SERVICE: 09/25/2019 SUBJECTIVE: The patient says she is doing alright. She feels just a little short of breath with exertion. She usually sleeps with the head slightly elevated and does fine with this. She is doing well with her physical therapy, is walking up to 15 feet with a rolling walker and caregiver assist. OBJECTIVE: GENERAL: The patient is sitting in a wheelchair. She is alert, talkative, appears in no distress. VITAL SIGNS: Her temperature is 97.9, pulse 75, respirations 20, O2 saturation 91% on room air, and blood pressure 163/67. LUNGS: Clear. HEART: Regular rate. EXTREMITIES: No edema. ASSESSMENT: 1. Febrile illness. a. Secondary to a viral syndrome. b. Resolved as of 09/22, and no recurrence as of 09/24. 2. Generalized weakness and gait abnormality. a. Following a fall on 09/11 and fracture of the left hip and repair. b. Improving, walking up to 15 feet with a walker with wheels. 3. Left femoral neck fracture. a. Secondary to a fall. b. Status post left hemiarthroplasty on 09/13 by orthopedic surgeon, Soto Eldridge. c. Doing well. 4. Hypertension, controlled. 5. Chronic atrial fibrillation. a. On chronic anticoagulation with Coumadin. b. Rate controlled. 6. Aortic stenosis. a. Status post aortic valve replacement with bioprosthetic valve 06/2010. 7. Hyperlipidemia. 8. Chronic kidney disease. 9. Gastroesophageal reflux disease, controlled. 10. Constipation, controlled. 11. Seizure disorder, controlled. 12. Abnormal liver function studies. a. Continued improvement as of 09/21. b. Etiology of the transient elevation not known. Simvastatin has been stopped. 13. Anemia secondary to chronic blood loss from the fracture and surgical repair. a. Hemoglobin 7.4 on 09/23. 14. External hemorrhoids, improved. PLAN: Continue present care. Continue PT and OT. Continue to follow CBC. Job ID: [id number] [facility]TDD
[2019-09-25] MEDS: Warfarin Sodium 7.5 MG TAB PO SCH (16:37)
[2019-09-25] MEDS: lamoTRIgine 25 MG TAB PO SCH (21:33)
[2019-09-26 06:15] LABS: INR-International Normal Ratio 1.9
[2019-09-26] MEDS: Aspirin 81 mg Enteric Coated Tablet PO SCH (09:12)
[2019-09-26] MEDS: hydrALAZINE 10 MG TAB PO SCH ×2 (09:13→21:17)
[2019-09-26] MEDS: Ferrous Gluconate 324 MG TAB PO SCH ×2 (09:13→16:09)
[2019-09-26] MEDS: Senokot S 8.6-50 MG TAB PO SCH ×2 (09:13→21:17)
[2019-09-26] MEDS: Calcium Carbonate 600 MG + Vit D TAB PO SCH (09:13)
[2019-09-26] MEDS: Propafenone HCl 150 MG TAB PO SCH ×3 (09:14→21:17)
[2019-09-26] MEDS: Amlodipine 5 MG TAB PO SCH ×2 (09:14→21:16)
[2019-09-26] MEDS: Fish Oil 1,000 MG CAP PO SCH (09:14)
[2019-09-26] MEDS: PHOS-NAK 1 PKT PACK PO SCH ×2 (09:14→21:17)
[2019-09-26] MEDS: Furosemide 20 MG TAB PO SCH (09:14)
[2019-09-26] MEDS: Polyethylene Glycol 3350 17 GM Packet PO SCH (09:16)
[2019-09-26] MEDS: Acetaminophen/Codeine 30-300mg Tablet PO PRN ×2 (11:13→21:18)
--- NOTE | 2019-09-26 14:19 | PRG ---
DATE OF SERVICE: 09/26/2019 SUBJECTIVE: The patient said that she does feel better today. She still at times has a little shortness of breath, a little wheezing, wheezing she thinks is just coming from her nose. She is not orthopneic. She is doing better with physical therapy. She has already walked this morning up to 75 feet with a rolling walker and caregiver assist. She still is requiring assistance with transfers. OBJECTIVE: GENERAL: The patient is standing, holding onto her walker and appears very comfortable and in no distress. VITAL SIGNS: Her temp is 97.8, pulse 65, respirations 18, O2 saturation 95% on room air, blood pressure 117/81. LUNGS: Clear with good breath sounds. There is no wheeze, no rales. HEART: Regular rate. EXTREMITIES: No edema. Her INR today was 1.9. ASSESSMENT: 1. Febrile illness. a. Secondary to viral syndrome, COVID negative. b. Resolved as of 09/22 with no recurrence as of 09/25. 2. Generalized weakness and gait abnormality. a. Following a fall on 09/11 and fracture of the left hip and repair. b. Improving, now walking up to 75 feet with a rolling walker with assistance and transferring with assistance as of 09/25. 3. Left femoral neck fracture. a. Secondary to a fall. b. Status post left hemiarthroplasty on 09/13 by orthopedic surgeon, Soto Eldridge. c. Doing well. 4. Hypertension. 5. Chronic atrial fibrillation. a. On chronic anticoagulation with Coumadin. b. Rate controlled. 6. Aortic stenosis. a. Status post aortic valve replacement with bioprosthetic valve on 06/2010. 7. Hyperlipidemia. 8. Chronic kidney disease. 9. Gastroesophageal reflux disease, controlled. 10. Constipation, controlled. 11. Seizure disorder, controlled. 12. Anxiety disorder. 13. Abnormal liver function studies. a. Improving. b. Etiology of the transient elevation not known, simvastatin had been stopped. 14. Anemia secondary to chronic blood loss from the fracture and surgical repair. 15. External hemorrhoids, improved. PLAN: The patient is doing better. We will continue present care. Continue PT and OT. Job ID: [id number] [facility]TDD
[2019-09-26] MEDS: Warfarin Sodium 7.5 MG TAB PO SCH (16:09)
[2019-09-26] MEDS: lamoTRIgine 25 MG TAB PO SCH (21:17)
[2019-09-27 05:53] LABS: INR-International Normal Ratio 2.1; Prothrombin Time 23.1 sec (12.0-14.7)
[2019-09-27] MEDS: Ferrous Gluconate 324 MG TAB PO SCH ×2 (08:12→16:34)
[2019-09-27] MEDS: Acetaminophen 325 MG TAB PO PRN (08:12)
[2019-09-27] MEDS: Furosemide 20 MG TAB PO SCH (08:12)
[2019-09-27] MEDS: Polyethylene Glycol 3350 17 GM Packet PO SCH (08:12)
[2019-09-27] MEDS: Propafenone HCl 150 MG TAB PO SCH ×3 (08:13→22:00)
[2019-09-27] MEDS: Senokot S 8.6-50 MG TAB PO SCH ×2 (08:13→22:00)
[2019-09-27] MEDS: Aspirin 81 mg Enteric Coated Tablet PO SCH (08:13)
[2019-09-27] MEDS: Fish Oil 1,000 MG CAP PO SCH (08:13)
[2019-09-27] MEDS: Calcium Carbonate 600 MG + Vit D TAB PO SCH (08:13)
[2019-09-27] MEDS: Amlodipine 5 MG TAB PO SCH ×2 (08:13→22:00)
[2019-09-27] MEDS: hydrALAZINE 10 MG TAB PO SCH ×2 (08:14→22:00)
[2019-09-27] MEDS: PHOS-NAK 1 PKT PACK PO SCH (09:21)
[2019-09-27] MEDS: Warfarin Sodium 7.5 MG TAB PO SCH (16:34)
[2019-09-27] MEDS: lamoTRIgine 25 MG TAB PO SCH (22:00)
[2019-09-27] MEDS: Ondansetron ODT 4 MG TAB PO PRN (22:05)
[2019-09-28 05:43] LABS: INR-International Normal Ratio 2.3; Prothrombin Time 25.5 sec (12.0-14.7)
[2019-09-28 05:50] LABS: Phosphorus 3.1 mg/dL (2.3-4.7)
[2019-09-28 05:55] LABS: ALT (SGPT) 28 U/L (8-55); AST (SGOT) 17 U/L (5-34); Albumin 2.9 g/dL (3.4-4.8); Alkaline Phosphatase 109 U/L (40-110); Anion Gap 15 mmol/L (10-20); BUN (Urea Nitrogen) 13 mg/dL (9.8-20.1); Bilirubin, Total 0.5 mg/dL (0.2-1.2); Calc. Creatinine Clearance 55 mL/min (70-130); Calcium 8.6 mg/dL (7.8-10.44); Carbon Dioxide 26 mmol/L (23-31); Chloride 100 mmol/L (98-107); Estimated GFR-MDRD 68; Glucose 110 mg/dL (83-110); Potassium 4.6 mmol/L (3.5-5.1); Protein, Total 5.9 g/dL (6.0-8.3); Sodium 136 mmol/L (136-145)
[2019-09-28 05:59] LABS: #Basophils 0.1 thou/uL (0.0-0.2); #Eosinphils 0.6 thou/uL (0.0-0.7); #Lymphocytes 1.6 thou/uL (1.20-3.40); #Monocytes 0.7 thou/uL (0.11-0.59); #Neutrophils 3.3 thou/uL (1.40-6.50); %Basophils 1.2 % (0.0-1.0); %Eosinophils 9.7 % (0.0-10.0); %Lymphocytes 25.1 % (21.0-51.0); %Monocytes 10.7 % (0.0-10.0); %Neutrophils 53.4 % (42.0-75.0); Anisocytosis SLIGHT = 6-15 cells (100X) (0-5/hpf); Hemoglobin 8.1 g/dL (12.0-16.0); MDiff Complete? YES; Macrocytosis MODERATE=16-30 cells (100X) (0-5/hpf); Mean Corpuscular HGB CONC 30.6 g/dL (32.0-36.0); Mean Corpuscular Hemoglobin 32.8 pg (27.0-31.0); Mean Corpuscular Volume 107.3 fL (78.0-98.0); Mean Platelet Volume 7.3 fL (7.4-10.4); Platelet Count 309 thou/uL (130-400); RBC Distribution Width 15.7 % (11.5-14.5); Red Blood Cell (RBC) Count 2.46 mill/uL (4.20-5.40); White Blood Cell (WBC) Count 6.2 thou/uL (4.8-10.8)
[2019-09-28] MEDS: Polyethylene Glycol 3350 17 GM Packet PO SCH (08:39)
[2019-09-28] MEDS: Calcium Carbonate 600 MG + Vit D TAB PO SCH (08:39)
[2019-09-28] MEDS: Aspirin 81 mg Enteric Coated Tablet PO SCH (08:40)
[2019-09-28] MEDS: Fish Oil 1,000 MG CAP PO SCH (08:40)
[2019-09-28] MEDS: Ferrous Gluconate 324 MG TAB PO SCH ×2 (08:40→16:47)
[2019-09-28] MEDS: Furosemide 20 MG TAB PO SCH (08:40)
[2019-09-28] MEDS: Senokot S 8.6-50 MG TAB PO SCH ×2 (08:40→21:14)
[2019-09-28] MEDS: hydrALAZINE 10 MG TAB PO SCH ×2 (08:41→21:14)
[2019-09-28] MEDS: Propafenone HCl 150 MG TAB PO SCH ×3 (08:41→21:14)
[2019-09-28] MEDS: Amlodipine 5 MG TAB PO SCH ×2 (08:42→21:13)
[2019-09-28] MEDS: Acetaminophen 325 MG TAB PO PRN ×2 (08:54→16:47)
--- NOTE | 2019-09-28 15:52 | PRG ---
DATE OF SERVICE: 09/28/2019 SUBJECTIVE: The patient says she is feeling better. She is not having any trouble with her breathing. Her hip is feeling better. OBJECTIVE: GENERAL: The patient is sitting up in her bedside chair, having completed her breakfast. She is alert, looks very comfortable, and in no distress. VITAL SIGNS: Show a temperature of 97.6, pulse 65, respirations 20, O2 saturation 95% on room air, blood pressure 131/68. LUNGS: Clear. HEART: Regular rate. EXTREMITIES: No edema. LABORATORY DATA: Lab shows an H and H up to 8.1 and 26.4, white cell count 6, 200 and platelet count 309. Sodium 136, potassium 4.6, BUN 13, creatinine 0.8, glucose 110. Liver enzymes are now all normal. Phosphorus up to 3.1. ASSESSMENT: 1. Febrile illness. a. Secondary to a viral syndrome, COVID negative. b. Resolved as of 09/22 with no recurrence as of 09/27. 2. Generalized weakness and gait abnormality. a. Following a fall on 09/11 and fracture of the left hip and repair. b. Improving, now walking up to 75 feet with a rolling walker and with assistance and transferring with assistance as of 09/27. 3. Left femoral neck fracture. a. Secondary to fall. b. Status post left hemiarthroplasty on 09/13 by orthopedic surgeon, Soto Eldridge. c. Doing well. 4. Hypertension. 5. Chronic atrial fibrillation. a. On chronic anticoagulation with Coumadin. b. Rate controlled. 6. Aortic stenosis. a. Status post aortic valve replacement with bioprosthetic valve on 06/2010. 7. Hyperlipidemia. 8. Chronic kidney disease. 9. Gastroesophageal reflux disease, controlled. 10. Constipation, controlled. 11. Seizure disorder, controlled. 12. Anxiety disorder, controlled. 13. Abnormal liver function studies, resolved as of 09/28/2019. The etiology of this transient elevation not known. Simvastatin had been stopped. 14. External hemorrhoids, resolving. PLAN: The patient is doing better. Her anemia is improving. We will continue present care. Continue PT/OT. Job ID: [id number] [facility]TDD
[2019-09-28] MEDS: Warfarin Sodium 7.5 MG TAB PO SCH (16:48)
[2019-09-28] MEDS: lamoTRIgine 25 MG TAB PO SCH (21:14)
[2019-09-28] MEDS: Acetaminophen/Codeine 30-300mg Tablet PO PRN (21:15)
[2019-09-29 05:42] LABS: INR-International Normal Ratio 2.3; Prothrombin Time 25.2 sec (12.0-14.7)
[2019-09-29] MEDS: Ferrous Gluconate 324 MG TAB PO SCH ×2 (08:14→16:31)
[2019-09-29] MEDS: Aspirin 81 mg Enteric Coated Tablet PO SCH (08:14)
[2019-09-29] MEDS: hydrALAZINE 10 MG TAB PO SCH ×2 (08:15→20:50)
[2019-09-29] MEDS: Calcium Carbonate 600 MG + Vit D TAB PO SCH (08:15)
[2019-09-29] MEDS: Fish Oil 1,000 MG CAP PO SCH (08:15)
[2019-09-29] MEDS: Propafenone HCl 150 MG TAB PO SCH ×3 (08:19→20:51)
[2019-09-29] MEDS: Furosemide 20 MG TAB PO SCH (08:19)
[2019-09-29] MEDS: Amlodipine 5 MG TAB PO SCH ×2 (08:20→20:49)
[2019-09-29] MEDS: Polyethylene Glycol 3350 17 GM Packet PO SCH (08:21)
[2019-09-29] MEDS: Senokot S 8.6-50 MG TAB PO SCH ×2 (08:21→20:51)
[2019-09-29] MEDS: Acetaminophen/Codeine 30-300mg Tablet PO PRN ×2 (08:24→23:42)
--- NOTE | 2019-09-29 09:48 | PRG ---
DATE OF SERVICE: 09/29/2019 SUBJECTIVE: The patient says she is feeling better. She is not having any pain. She is doing better in physical therapy and walking further. OBJECTIVE: GENERAL: The patient was seen coming out of the Physical Therapy Department, walking with the aid of her walker and standby assistance. She is alert and talkative, and appeared in no distress. VITAL SIGNS: Temperature 98.2, pulse 69, blood pressure 104/61, O2 saturation 96% on room air. LUNGS: Clear. HEART: Regular rate. EXTREMITIES: No edema. LABORATORY DATA: INR is 2.3. ASSESSMENT: 1. Febrile illness. a. Viral syndrome, COVID negative, resolved on 09/22 with no recurrence as of 09/28. 2. Generalized weakness and gait abnormality. a. Following a fall on 09/11 and fracture of the left hip and repair. b. Improving. Walking at least 75 feet with a rolling walker and transferring with assistance as of 09/28. 3. Left femoral neck fracture. a. History of fall. b. Status post left hemiarthroplasty on 09/[address] Soto Eldridge, orthopedic surgeon. c. Doing well. 4. Hypertension. 5. Chronic atrial fibrillation. a. On chronic anticoagulation with Coumadin. b. Rate controlled. 6. Aortic stenosis. a. Status post aortic valve replacement with bioprosthetic valve in 06/2010. 7. Hyperlipidemia. 8. Chronic kidney disease. 9. Gastroesophageal reflux disease, controlled. 10. Constipation, controlled. 11. Seizure disorder, controlled. PLAN: The patient continues to improve. Will continue PT and OT. Job ID: [id number] [facility]
[2019-09-29] MEDS: Warfarin Sodium 7.5 MG TAB PO SCH (16:31)
[2019-09-29] MEDS: lamoTRIgine 25 MG TAB PO SCH (20:50)
[2019-09-30 05:46] LABS: INR-International Normal Ratio 2.4; Prothrombin Time 26.3 sec (12.0-14.7)
[2019-09-30] MEDS: Acetaminophen/Codeine 30-300mg Tablet PO PRN (08:17)
[2019-09-30] MEDS: Senokot S 8.6-50 MG TAB PO SCH ×2 (08:19→20:34)
[2019-09-30] MEDS: Propafenone HCl 150 MG TAB PO SCH ×3 (08:19→20:34)
[2019-09-30] MEDS: Ferrous Gluconate 324 MG TAB PO SCH ×2 (08:19→17:13)
[2019-09-30] MEDS: Amlodipine 5 MG TAB PO SCH ×2 (08:19→20:33)
[2019-09-30] MEDS: Polyethylene Glycol 3350 17 GM Packet PO SCH (08:19)
[2019-09-30] MEDS: Fish Oil 1,000 MG CAP PO SCH (08:19)
[2019-09-30] MEDS: hydrALAZINE 10 MG TAB PO SCH ×2 (08:20→20:32)
[2019-09-30] MEDS: Aspirin 81 mg Enteric Coated Tablet PO SCH (08:20)
[2019-09-30] MEDS: Calcium Carbonate 600 MG + Vit D TAB PO SCH (08:21)
[2019-09-30] MEDS: Furosemide 20 MG TAB PO SCH (08:21)
[2019-09-30] MEDS: Ondansetron ODT 4 MG TAB PO PRN (08:46)
--- NOTE | 2019-09-30 11:07 | PRG ---
DATE OF SERVICE: 09/30/2019 SUBJECTIVE: The patient says she is doing better. She had no complaint. Her therapy is going well for her. OBJECTIVE: GENERAL: The patient is sitting in a chair, just returning from physical therapy. She is alert, appears in no distress. VITAL SIGNS: Her temp is 97.1, pulse 57, respirations 18, O2 saturation 94% on room air, blood pressure 120/66. LUNGS: Clear. HEART: Regular rate. EXTREMITIES: No edema. LABORATORY DATA: INR 2.4. ASSESSMENT: 1. Febrile illness. a. Viral syndrome, COVID negative, resolved as of 09/22 with no recurrence as of 09/29. 2. Generalized weakness and gait abnormality. a. Following a fall on 09/11 and fracture of the left hip and repair. b. Improving. Walking at least 75 feet with a rolling walker and transferring with assistance as of 09/29. 3. Left femoral neck fracture. a. History of a fall. b. Status post left hemiarthroplasty, 09/[address] Soto Eldridge, orthopedic surgeon. c. Doing well. 4. Hypertension. 5. Chronic atrial fibrillation. a. On chronic anticoagulation with Coumadin. 6. Aortic stenosis. a. Status post aortic valve replacement with bioprosthetic valve in 06/2010. 7. Seizure disorder, controlled. PLAN: The patient is doing better. Continue physical therapy. Continue occupational therapy. Job ID: [id number] [facility]
[2019-09-30] MEDS: Warfarin Sodium 7.5 MG TAB PO SCH (17:13)
[2019-09-30] MEDS: lamoTRIgine 25 MG TAB PO SCH (20:34)
[2019-09-30] MEDS: Acetaminophen 325 MG TAB PO PRN (22:11)
[2019-10-01] MEDS: Acetaminophen 325 MG TAB PO PRN ×2 (06:33→22:27)
[2019-10-01] MEDS: Aspirin 81 mg Enteric Coated Tablet PO SCH (08:11)
[2019-10-01] MEDS: Calcium Carbonate 600 MG + Vit D TAB PO SCH (08:11)
[2019-10-01] MEDS: Ferrous Gluconate 324 MG TAB PO SCH ×2 (08:12→16:57)
[2019-10-01] MEDS: Fish Oil 1,000 MG CAP PO SCH (08:12)
[2019-10-01] MEDS: Senokot S 8.6-50 MG TAB PO SCH ×2 (08:12→21:14)
[2019-10-01] MEDS: Propafenone HCl 150 MG TAB PO SCH ×3 (08:13→21:11)
[2019-10-01] MEDS: hydrALAZINE 10 MG TAB PO SCH ×2 (08:14→21:13)
[2019-10-01] MEDS: Amlodipine 5 MG TAB PO SCH ×2 (08:14→21:12)
[2019-10-01] MEDS: Polyethylene Glycol 3350 17 GM Packet PO SCH (08:15)
[2019-10-01] MEDS: Furosemide 20 MG TAB PO SCH (08:15)
[2019-10-01] MEDS: Warfarin Sodium 7.5 MG TAB PO SCH (16:58)
[2019-10-01] MEDS: lamoTRIgine 25 MG TAB PO SCH (21:17)
[2019-10-02 05:26] LABS: INR-International Normal Ratio 2.8
[2019-10-02] MEDS: Acetaminophen 325 MG TAB PO PRN ×2 (05:30→10:42)
[2019-10-02] MEDS: Senokot S 8.6-50 MG TAB PO SCH ×2 (08:42→21:35)
[2019-10-02] MEDS: Fish Oil 1,000 MG CAP PO SCH (08:42)
[2019-10-02] MEDS: Ferrous Gluconate 324 MG TAB PO SCH ×2 (08:42→17:33)
[2019-10-02] MEDS: Aspirin 81 mg Enteric Coated Tablet PO SCH (08:42)
[2019-10-02] MEDS: Amlodipine 5 MG TAB PO SCH ×2 (08:42→21:33)
[2019-10-02] MEDS: hydrALAZINE 10 MG TAB PO SCH ×2 (08:43→21:34)
[2019-10-02] MEDS: Calcium Carbonate 600 MG + Vit D TAB PO SCH (08:43)
[2019-10-02] MEDS: Polyethylene Glycol 3350 17 GM Packet PO SCH (08:44)
[2019-10-02] MEDS: Furosemide 20 MG TAB PO SCH (08:44)
[2019-10-02] MEDS: Propafenone HCl 150 MG TAB PO SCH ×3 (08:44→21:27)
--- NOTE | 2019-10-02 13:15 | RAD ---
2 views left hip: 10/02/2019 COMPARISON: 09/12/2019 HISTORY: Follow-up examination, left hip arthroplasty FINDINGS: No fracture or dislocation. No radiopaque foreign body or subcutaneous gas. Stable left hip arthroplasty noted within compared to postoperative imaging performed 09/14/2019. No evidence for hardware failure. IMPRESSION: No acute findings. Status post left hip arthroplasty.
[2019-10-02 13:24] VITALS: BMI 25.6
--- NOTE | 2019-10-02 14:31 | PRG ---
DATE OF SERVICE: 10/01/2019 SUBJECTIVE: The patient thinks she is doing better. She is walking further using her walker. Her pain seems to be well controlled. OBJECTIVE: GENERAL: The patient is alert and appears in no distress. VITAL SIGNS: Shows a temperature of 98.6, pulse rate 60, respirations are 18, blood pressure 109/60, and O2 saturation 95% on room air. LUNGS: Clear. HEART: Regular rate. EXTREMITIES: The patient has just mild edema in the left leg, right leg has none. ASSESSMENT: 1. Febrile illness. a. Viral syndrome, COVID negative, resolved as of 09/22 and no recurrence as of 09/30. 2. Generalized weakness and gait abnormality. a. Following a fall on 09/11 and fracture of the left hip and repair. b. Continues to improve. Walking further and transferring easier as of . 3. Left femoral neck fracture. a. History of a fall. b. Status post left hemiarthroplasty on 09/[address] Soto Eldridge, orthopedic surgeon. c. Doing well. 4. Hypertension. 5. Chronic atrial fibrillation. a. On chronic anticoagulation with Coumadin. 6. Aortic stenosis. a. Status post aortic valve replacement with bioprosthetic valve in June of 2010. 7. Seizure disorder, controlled. No recent seizures. PLAN: Continue present care. Job ID: [id number] [facility]
--- NOTE | 2019-10-02 14:39 | PRG ---
DATE OF SERVICE: 10/02/2019 SUBJECTIVE: The patient thinks she is doing very well. She said she is making good progress with physical therapy. She is walking up to 150 feet 2 times a day with a rolling walker. She is transferring with just supervision. OBJECTIVE: GENERAL: The patient looks very comfortable, in no distress. VITAL SIGNS: Temperature is 97.4, pulse 67, blood pressure 130/75, respirations 16, O2 saturation 94% on room air, blood pressure 130/75. LUNGS: Clear. HEART: Regular rate. EXTREMITIES: Lower extremites: The patient has a little mild edema in the left lower leg, but none on the right. ASSESSMENT: 1. Febrile illness. a. Viral syndrome, COVID negative, resolved as of 09/22 with no recurrence as of 10/01. 2. Generalized weakness and gait abnormality. a. Following a fall on 09/11 and fracture of the left hip and repair. b. Improving. Walking up to 150 feet using a rolling walker at least twice a day and transferring with just supervision as of 10/01. 3. Left femoral neck fracture. a. History of a fall. b. Status post left hemiarthroplasty on 09/13 by Soto Eldridge, orthopedic surgeon. c. Doing well. 4. Hypertension. 5. Chronic atrial fibrillation. a. On chronic anticoagulation with Coumadin. 6. Aortic stenosis. a. Status post aortic valve replacement with bioprosthetic valve in 2010. 7. Seizure disorder, controlled. No recent seizures. PLAN: The patient is making excellent progress. Continue PT and OT. The patient is due to see her orthopedic surgeon this afternoon with x-rays of the hip. Job ID: [id number] [facility]
[2019-10-02] MEDS: Warfarin Sodium 7.5 MG TAB PO SCH (17:33)
[2019-10-02] MEDS: lamoTRIgine 25 MG TAB PO SCH (21:26)
[2019-10-03] MEDS: Acetaminophen 325 MG TAB PO PRN ×2 (05:45→16:52)
[2019-10-03 05:50] LABS: Prothrombin Time 31.1 sec (12.0-14.7)
[2019-10-03] MEDS: Aspirin 81 mg Enteric Coated Tablet PO SCH (08:35)
[2019-10-03] MEDS: Polyethylene Glycol 3350 17 GM Packet PO SCH (08:35)
[2019-10-03] MEDS: Ferrous Gluconate 324 MG TAB PO SCH ×2 (08:35→16:52)
[2019-10-03] MEDS: Senokot S 8.6-50 MG TAB PO SCH ×2 (08:36→20:14)
[2019-10-03] MEDS: Propafenone HCl 150 MG TAB PO SCH ×3 (08:36→20:15)
[2019-10-03] MEDS: Amlodipine 5 MG TAB PO SCH ×2 (08:36→20:16)
[2019-10-03] MEDS: hydrALAZINE 10 MG TAB PO SCH ×2 (08:36→20:15)
[2019-10-03] MEDS: Fish Oil 1,000 MG CAP PO SCH (08:37)
[2019-10-03] MEDS: Furosemide 20 MG TAB PO SCH (08:37)
[2019-10-03] MEDS: Calcium Carbonate 600 MG + Vit D TAB PO SCH (08:37)
[2019-10-03] MEDS: Ondansetron ODT 4 MG TAB PO PRN (08:41)
--- NOTE | 2019-10-03 12:56 | PRG ---
DATE OF SERVICE: 10/03/2019 SUBJECTIVE: The patient says she is doing good. She did see Dr. Eldridge, her orthopedic surgeon, yesterday with x-ray of the hip, and he said she was doing just fine and would see her in 3 months. The patient is doing very well with her physical therapy. She is walking up to 150 feet twice today with a rolling walker and standby assistance. She is transferring with supervision. OBJECTIVE: GENERAL: The patient is sitting in her bedside chair. She is alert, talkative, appears comfortable, and in no distress. VITAL SIGNS: Her temperature 97.7, pulse 61, respirations 18, O2 saturation 94 % on room air, and blood pressure 129/70. LUNGS: Her lungs are clear. HEART: Regular rate with a grade 3/6 systolic murmur heard best at the base of the heart. EXTREMITIES: Her extremities have just 1+ edema in the left leg. She has LOKI hose, but just has not put them on this morning. Incision healing well. ASSESSMENT: 1. Febrile illness. a. Viral syndrome. COVID negative. Resolved as of 09/22 with no recurrence as of 10/02. 2. Generalized weakness and gait abnormality. a. Following a fall on 09/11 and fracture of the left hip and repair. b. Improving. Walking up to 150 feet twice today with a rolling walker and transferring with supervision only as of 10/02. 3. Left femoral neck fracture. a. Secondary to a fall. b. Status post left hemiarthroplasty on 09/[address] Soto Eldridge, orthopedic surgeon. c. Doing very well. Followup visit with Dr. Eldridge on 10/01 with x-ray showed doing well. 4. Hypertension. 5. Chronic atrial fibrillation, on chronic anticoagulation with Coumadin. 6. Aortic stenosis. a. Status post aortic valve replacement with bioprosthetic valve in 2010. 7. Seizure disorder, controlled. No recent seizures. PLAN: The patient is making excellent progress. We will continue PT and OT. Tentatively, we will target her going home one day probably towards the end of next week. Job ID: [id number] [facility]TD[facility]
[2019-10-03] MEDS: Warfarin Sodium 7.5 MG TAB PO SCH (16:53)
[2019-10-03] MEDS: lamoTRIgine 25 MG TAB PO SCH (20:15)
[2019-10-04 06:02] LABS: INR-International Normal Ratio 3.5; Prothrombin Time 35.2 sec (12.0-14.7)
[2019-10-04] MEDS: hydrALAZINE 10 MG TAB PO SCH ×2 (08:20→20:57)
[2019-10-04] MEDS: Aspirin 81 mg Enteric Coated Tablet PO SCH (08:20)
[2019-10-04] MEDS: Calcium Carbonate 600 MG + Vit D TAB PO SCH (08:21)
[2019-10-04] MEDS: Ferrous Gluconate 324 MG TAB PO SCH ×2 (08:21→17:17)
[2019-10-04] MEDS: Senokot S 8.6-50 MG TAB PO SCH ×2 (08:21→21:11)
[2019-10-04] MEDS: Furosemide 20 MG TAB PO SCH (08:22)
[2019-10-04] MEDS: Amlodipine 5 MG TAB PO SCH ×2 (08:22→21:09)
[2019-10-04] MEDS: Fish Oil 1,000 MG CAP PO SCH (08:22)
[2019-10-04] MEDS: Propafenone HCl 150 MG TAB PO SCH ×3 (08:22→21:10)
[2019-10-04] MEDS: Polyethylene Glycol 3350 17 GM Packet PO SCH (08:23)
[2019-10-04] MEDS: Ondansetron ODT 4 MG TAB PO PRN (11:20)
[2019-10-04] MEDS: Acetaminophen 325 MG TAB PO PRN (20:56)
[2019-10-04] MEDS: lamoTRIgine 25 MG TAB PO SCH (20:57)
[2019-10-05 05:59] LABS: INR-International Normal Ratio 2.6; Prothrombin Time 27.3 sec (12.0-14.7)
[2019-10-05] MEDS: Senokot S 8.6-50 MG TAB PO SCH ×2 (09:20→20:04)
[2019-10-05] MEDS: Polyethylene Glycol 3350 17 GM Packet PO SCH (09:20)
[2019-10-05] MEDS: Ferrous Gluconate 324 MG TAB PO SCH ×2 (09:21→16:50)
[2019-10-05] MEDS: Fish Oil 1,000 MG CAP PO SCH (09:21)
[2019-10-05] MEDS: Calcium Carbonate 600 MG + Vit D TAB PO SCH (09:22)
[2019-10-05] MEDS: Aspirin 81 mg Enteric Coated Tablet PO SCH (09:22)
[2019-10-05] MEDS: hydrALAZINE 10 MG TAB PO SCH ×2 (09:22→20:04)
[2019-10-05] MEDS: Furosemide 20 MG TAB PO SCH (09:22)
[2019-10-05] MEDS: Propafenone HCl 150 MG TAB PO SCH ×4 (09:22→20:04)
[2019-10-05] MEDS: Amlodipine 5 MG TAB PO SCH ×2 (09:22→20:04)
[2019-10-05] MEDS: Warfarin Sodium 7.5 MG TAB PO SCH (16:50)
[2019-10-05] MEDS: Acetaminophen 325 MG TAB PO PRN (20:02)
[2019-10-05] MEDS: lamoTRIgine 25 MG TAB PO SCH (20:04)
[2019-10-06 05:39] LABS: INR-International Normal Ratio 2.4; Prothrombin Time 25.6 sec (12.0-14.7)
[2019-10-06] MEDS: Acetaminophen 325 MG TAB PO PRN (06:16)
[2019-10-06] MEDS: Polyethylene Glycol 3350 17 GM Packet PO SCH (08:52)
[2019-10-06] MEDS: Amlodipine 5 MG TAB PO SCH ×2 (08:53→21:43)
[2019-10-06] MEDS: Propafenone HCl 150 MG TAB PO SCH ×3 (08:54→21:43)
[2019-10-06] MEDS: Calcium Carbonate 600 MG + Vit D TAB PO SCH (08:54)
[2019-10-06] MEDS: Furosemide 20 MG TAB PO SCH (08:54)
[2019-10-06] MEDS: Ferrous Gluconate 324 MG TAB PO SCH ×2 (08:54→17:18)
[2019-10-06] MEDS: Senokot S 8.6-50 MG TAB PO SCH ×2 (08:54→21:43)
[2019-10-06] MEDS: Fish Oil 1,000 MG CAP PO SCH (08:54)
[2019-10-06] MEDS: hydrALAZINE 10 MG TAB PO SCH ×2 (08:54→21:43)
[2019-10-06] MEDS: Aspirin 81 mg Enteric Coated Tablet PO SCH (08:54)
--- NOTE | 2019-10-06 12:36 | PRG ---
DATE OF SERVICE: 10/06/2019 SUBJECTIVE: The patient says she is doing fine. She had no complaint. She is having mild pain which is managed with Tylenol alone. OBJECTIVE: GENERAL: The patient is just coming back from physical therapy. She is sitting in her chair. VITAL SIGNS: Her temperature is 97.6, pulse 61, respirations 20, O2 saturation 96% on room air, and blood pressure 115/61. LUNGS: Clear. HEART: Regular rate. EXTREMITIES: The patient is wearing her LOKI hose. There is no swelling. ASSESSMENT: 1. Febrile illness. a. Viral syndrome. COVID negative. b. Resolved as of 09/22 with no recurrence as of 10/05. 2. Generalized weakness and gait abnormality. a. Following a fall on 09/11 and fracture of the left hip and repair. b. Improving. Walking up to 150 feet twice a day with a rolling walker and transferring with supervision as of 10/05. 3. Left femoral neck fracture. a. Secondary to a fall. b. Status post left hemiarthroplasty on 09/[address] Soto Eldridge, orthopedic surgeon. c. Doing well as of 10/05. 4. Hypertension. 5. Chronic atrial fibrillation. a. Rate controlled. 6. Aortic stenosis. a. Status post aortic valve replacement with bioprosthetic valve in 2010. 7. Seizure disorder, controlled. No recent seizure. PLAN: Continue present care. Tentatively, we are anticipating her discharge on Sunday , 10/09. Job ID: [id number] [facility]TD[facility]
[2019-10-06] MEDS: Warfarin Sodium 5 MG TAB PO SCH (17:19)
[2019-10-06] MEDS: lamoTRIgine 25 MG TAB PO SCH (21:42)
[2019-10-07] MEDS: Acetaminophen 325 MG TAB PO PRN (05:39)
[2019-10-07 05:46] LABS: INR-International Normal Ratio 2.3; Prothrombin Time 24.8 sec (12.0-14.7)
[2019-10-07 05:47] LABS: #Eosinphils 0.6 thou/uL (0.0-0.7); #Lymphocytes 1.5 thou/uL (1.20-3.40); #Monocytes 0.7 thou/uL (0.11-0.59); #Neutrophils 2.4 thou/uL (1.40-6.50); %Basophils 0.8 % (0.0-1.0); %Eosinophils 11.1 % (0.0-10.0); %Lymphocytes 28.2 % (21.0-51.0); %Monocytes 13.4 % (0.0-10.0); %Neutrophils 46.5 % (42.0-75.0); Hemoglobin 8.8 g/dL (12.0-16.0); Hypochromia SLIGHT = 6-15 cells (100X) (0-5/hpf); MDiff Complete? YES; Macrocytosis SLIGHT = 6-15 cells (100X) (0-5/hpf); Mean Corpuscular HGB CONC 31.2 g/dL (32.0-36.0); Mean Corpuscular Hemoglobin 33.8 pg (27.0-31.0); Mean Corpuscular Volume 108.1 fL (78.0-98.0); Platelet Count 163 thou/uL (130-400); Platelet Morphology Comment Appears Adequate; Red Blood Cell (RBC) Count 2.61 mill/uL (4.20-5.40); Stomatocytes SLIGHT = 2-5 cells (100X) (0-1/hpf); White Blood Cell (WBC) Count 5.2 thou/uL (4.8-10.8)
[2019-10-07 05:56] LABS: Anion Gap 10 mmol/L (10-20); BUN (Urea Nitrogen) 11 mg/dL (9.8-20.1); Calc. Creatinine Clearance 56 mL/min (70-130); Calcium 8.4 mg/dL (7.8-10.44); Carbon Dioxide 29 mmol/L (23-31); Chloride 102 mmol/L (98-107); Estimated GFR-MDRD 70; Glucose 98 mg/dL (83-110); Sodium 137 mmol/L (136-145)
[2019-10-07] MEDS: Calcium Carbonate 600 MG + Vit D TAB PO SCH (08:24)
[2019-10-07] MEDS: Senokot S 8.6-50 MG TAB PO SCH ×2 (08:24→21:11)
[2019-10-07] MEDS: Ferrous Gluconate 324 MG TAB PO SCH ×2 (08:24→16:13)
[2019-10-07] MEDS: Fish Oil 1,000 MG CAP PO SCH (08:24)
[2019-10-07] MEDS: Furosemide 20 MG TAB PO SCH (08:25)
[2019-10-07] MEDS: Amlodipine 5 MG TAB PO SCH ×2 (08:25→21:10)
[2019-10-07] MEDS: hydrALAZINE 10 MG TAB PO SCH ×2 (08:25→21:10)
[2019-10-07] MEDS: Propafenone HCl 150 MG TAB PO SCH ×3 (08:25→21:10)
[2019-10-07] MEDS: Aspirin 81 mg Enteric Coated Tablet PO SCH (08:25)
[2019-10-07] MEDS: Polyethylene Glycol 3350 17 GM Packet PO SCH (10:36)
[2019-10-07] MEDS: Warfarin Sodium 7.5 MG TAB PO SCH (18:32)
[2019-10-07] MEDS: lamoTRIgine 25 MG TAB PO SCH (21:09)
[2019-10-08 05:43] LABS: INR-International Normal Ratio 2.5; Prothrombin Time 27.2 sec (12.0-14.7)
[2019-10-08] MEDS: Acetaminophen 325 MG TAB PO PRN ×2 (05:44→13:37)
[2019-10-08] MEDS: Polyethylene Glycol 3350 17 GM Packet PO SCH (08:54)
[2019-10-08] MEDS: Ferrous Gluconate 324 MG TAB PO SCH ×2 (08:55→17:45)
[2019-10-08] MEDS: Amlodipine 5 MG TAB PO SCH ×2 (08:55→21:12)
[2019-10-08] MEDS: Furosemide 20 MG TAB PO SCH (08:55)
[2019-10-08] MEDS: Aspirin 81 mg Enteric Coated Tablet PO SCH (08:55)
[2019-10-08] MEDS: Senokot S 8.6-50 MG TAB PO SCH ×2 (08:56→21:14)
[2019-10-08] MEDS: hydrALAZINE 10 MG TAB PO SCH ×2 (08:56→21:13)
[2019-10-08] MEDS: Fish Oil 1,000 MG CAP PO SCH (08:57)
[2019-10-08] MEDS: Propafenone HCl 150 MG TAB PO SCH ×3 (08:57→21:14)
[2019-10-08] MEDS: Calcium Carbonate 600 MG + Vit D TAB PO SCH (08:57)
--- NOTE | 2019-10-08 14:46 | PRG ---
DATE OF SERVICE: 10/08/2019 SUBJECTIVE: The patient is doing very well. I visited with the therapist. She said that the patient is walking very good with using her walker. She is transferring independently. She is able to get in and out of bed. She is able to dress herself. She feels like she will do fine. Presently, plans are for her discharge on Sunday, 10/09. OBJECTIVE: GENERAL: The patient is alert, appears comfortable, in no distress. VITAL SIGNS: Her vital signs show a temperature of 98.1, pulse 59, respirations 16, O2 saturation 94% on room air, and blood pressure 116/64. LUNGS: Clear. HEART: Regular rate. EXTREMITIES: No edema. The patient is wearing her LOKI hose. ASSESSMENT: 1. Febrile illness. a. Viral syndrome. COVID negative. b. Resolved as of 09/22 with no recurrence as of 10/07. 2. Generalized weakness and gait abnormality. a. Following a fall on 09/11 and fracture of the left hip and repair. b. Improving. Walking further. Transferring independently as of 10/07. 3. Left femoral neck fracture. a. Secondary to a fall. b. Status post left hemiarthroplasty on 09/[address] Soto Eldridge, orthopedic surgeon. c. Doing very well as of 10/07. 4. Hypertension. 5. Chronic atrial fibrillation. a. Rate controlled. 6. Aortic stenosis. a. Status post aortic valve replacement with bioprosthetic valve in 2010. 7. Seizure disorder, controlled. No recent seizures. PLAN: Continue present care. Continue PT and OT. Planning discharge to her home where she will have help. Home Health will be arranged and discharge date will be 10/09. Job ID: [id number] [facility]TDD
[2019-10-08] MEDS: Warfarin Sodium 5 MG TAB PO SCH (17:49)
[2019-10-08] MEDS: lamoTRIgine 25 MG TAB PO SCH (21:13)
[2019-10-09] MEDS: Acetaminophen 325 MG TAB PO PRN ×2 (02:59→09:36)
[2019-10-09] MEDS: Ferrous Gluconate 324 MG TAB PO SCH ×2 (09:28→17:07)
[2019-10-09] MEDS: Amlodipine 5 MG TAB PO SCH ×2 (09:29→21:01)
[2019-10-09] MEDS: Aspirin 81 mg Enteric Coated Tablet PO SCH (09:30)
[2019-10-09] MEDS: Fish Oil 1,000 MG CAP PO SCH (09:31)
[2019-10-09] MEDS: Furosemide 20 MG TAB PO SCH (09:31)
[2019-10-09] MEDS: Calcium Carbonate 600 MG + Vit D TAB PO SCH (09:31)
[2019-10-09] MEDS: hydrALAZINE 10 MG TAB PO SCH ×2 (09:32→20:59)
[2019-10-09] MEDS: Senokot S 8.6-50 MG TAB PO SCH ×2 (09:33→21:00)
[2019-10-09] MEDS: Propafenone HCl 150 MG TAB PO SCH ×3 (09:33→21:00)
[2019-10-09] MEDS: Polyethylene Glycol 3350 17 GM Packet PO SCH (09:33)
[2019-10-09] MEDS: Warfarin Sodium 7.5 MG TAB PO SCH (17:07)
[2019-10-09] MEDS: lamoTRIgine 25 MG TAB PO SCH (21:01)
[2019-10-10] MEDS: Acetaminophen 325 MG TAB PO PRN (04:42)
[2019-10-10 05:48] LABS: INR-International Normal Ratio 2.9; Prothrombin Time 29.7 sec (12.0-14.7)
[2019-10-10 08:34] VITALS: BP 128/69; TEMP 97.5
[2019-10-10] MEDS: hydrALAZINE 10 MG TAB PO SCH (09:03)
[2019-10-10] MEDS: Calcium Carbonate 600 MG + Vit D TAB PO SCH (09:03)
[2019-10-10] MEDS: Aspirin 81 mg Enteric Coated Tablet PO SCH (09:03)
[2019-10-10] MEDS: Ferrous Gluconate 324 MG TAB PO SCH (09:03)
[2019-10-10] MEDS: Fish Oil 1,000 MG CAP PO SCH (09:04)
[2019-10-10] MEDS: Senokot S 8.6-50 MG TAB PO SCH (09:04)
[2019-10-10] MEDS: Amlodipine 5 MG TAB PO SCH (09:05)
[2019-10-10] MEDS: Propafenone HCl 150 MG TAB PO SCH (09:05)
[2019-10-10] MEDS: Furosemide 20 MG TAB PO SCH (09:05)
[2019-10-10] MEDS: Polyethylene Glycol 3350 17 GM Packet PO SCH (09:06)
--- NOTE | 2019-10-10 11:31 | DIS ---
DATE OF ADMISSION: 09/16/2019 DATE OF DISCHARGE: 10/10/2019 FINAL DIAGNOSES: 1. Generalized weakness and gait abnormality. a. Following a fall on 09/11 and fracture of the left hip and repair. b. Improving. Walking up to 200 feet twice today with a rolling walker, transferring independently with supervision as of 10/08. 2. Left femoral neck fracture. a. Secondary to a fall. b. Status post left hemiarthroplasty on 09/[address] Soto Eldridge, orthopedic surgeon. c. Doing very well as of 10/07. 3. Hypertension. 4. Chronic atrial fibrillation. a. Rate controlled. 5. Aortic stenosis. a. Status post aortic valve replacement with bioprosthetic valve in 2010. 6. Seizure disorder, controlled. No recent seizures. 7. Febrile illness. a. Viral syndrome. COVID negative. b. Resolved as of 09/22 with no recurrence as of 10/08. REASON FOR ADMISSION: The patient is an 89-year-old white female, who is independent of her ADLs. She has a history of hypertension, chronic atrial fibrillation, rate is controlled when she is on chronic anticoagulation. She has aortic stenosis and has had a bioprosthetic valve replacement in 2010. She has a seizure disorder which has been controlled with no recent seizures. The patient had a mechanical fall at home on 09/11 and had a left femoral neck fracture. She was hospitalized at [facility] and on 09/13 she underwent a left hemiarthroplasty by Dr. Soto Eldridge, orthopedic surgeon. The delay in the surgery was to allow stabilization and normalization of her PT/INR. The patient did very well with her surgery and postop period was unremarkable. The patient was transferred to [facility] on the evening of 09/16/19 for purpose of continued PT and occupational therapy. The patient's course in the hospital here at [facility] was one of continual improvement. Physical Therapy and Occupational Therapy worked with her and by the time of her discharge, she was walking up to 200 feet twice a day using her rolling walker and only just standby supervision. She was also transferring independently. Her incision on her hip was healing well. She had some minor swelling in her left leg that was controlled with her LOKI hose. The patient did develop a fever and a little slight cough. Her lab studies including UA and CBC were unremarkable. Chest x-ray was clear and her COVID nasal swab was negative. It was felt she just had a viral syndrome and was treated symptomatically. This all resolved by 09/22 and there has been no recurrence. Her condition continued to improve. The patient felt that she would be fine at home and was looking to be discharged on Sunday, 10/09. Her son lives there and will be available to help her. [facility] will also picker and packer on her care and also arrange for in-home PT and OT. DISPOSITION: DIET: Regular diet. No added salt. ACTIVITIES: Ambulate with the use of a walker. Fall precautions. MEDICATIONS: 1. Acetaminophen 325 mg 2 every 4 hours as needed for pain. 2. Amlodipine 5 mg b.i.d. 3. Aspirin 81 mg daily. 4. Dulcolax suppository 10 mg one per rectum daily p.r.n. bowel movement. 5. Caltrate D 600/200 one daily. 6. Ferrous gluconate 325 mg b.i.d. 7. Fish oil 1000 mg daily. 8. Furosemide 20 mg daily. 9. Hydralazine 10 mg b.i.d. 10. Lamictal 100 mg at bedtime. 11. Metoprolol succinate 200 mg daily. 12. Pantoprazole 40 mg b.i.d. 13. MiraLAX 17 g in 8 ounces of water daily. 14. Rythmol 150 mg t.i.d. 15. Senokot-S 2 b.i.d. 16. Coumadin 5 mg on Sunday, Sunday, and Sunday. 17. Coumadin 5 mg [id number] tablets on Sunday, , Sunday and Sunday. FOLLOWUP: [facility] will see the patient and arrange for in-home PT and OT. The patient will need a PT, INR, CBC and basic metabolic panel prior to my recheck in 2 weeks. Follow up with orthopedic surgeon in 3 months. Follow up with Dr. Kelley, primary physician in 2 weeks, which can be done by telemedicine visit. Code status DNR. The patient will be discharged on the morning of 10/09. Job ID: [id number] [facility]TDD
== END 2019-10-10 10:00 | disposition home health service (06) | DRG 560 ==
LOC: MADMS 06:09
PROVIDERS: ADMIT Family Medicine; ATTEND Family Medicine
PROC: 8E0ZXY6 Isolation (ICD-10-PCS; principal; 2019-09-19)
DX: Z47.89 Encounter for other orthopedic aftercare (principal); I48.20 Chronic atrial fibrillation, unspecified; S72.002D Fracture of unspecified part of neck of left femur, subsequent encounter for closed fracture with routine healing; B34.9 Viral infection, unspecified; R26.9 Unspecified abnormalities of gait and mobility; Z66 Do not resuscitate; K59.00 Constipation, unspecified; Z20.828 Contact with and (suspected) exposure to other viral communicable diseases; I12.9 Hypertensive chronic kidney disease with stage 1 through stage 4 chronic kidney disease, or unspecified chronic kidney disease; E78.5 Hyperlipidemia, unspecified; I25.10 Atherosclerotic heart disease of native coronary artery without angina pectoris; K64.4 Residual hemorrhoidal skin tags; G40.909 Epilepsy, unspecified, not intractable, without status epilepticus; I35.0 Nonrheumatic aortic (valve) stenosis; K21.9 Gastro-esophageal reflux disease without esophagitis; N18.9 Chronic kidney disease, unspecified; W18.39XD Other fall on same level, subsequent encounter; Z79.01 Long term (current) use of anticoagulants; Z95.2 Presence of prosthetic heart valve; Z95.0 Presence of cardiac pacemaker; Z90.710 Acquired absence of both cervix and uterus; Z88.1 Allergy status to other antibiotic agents; Z88.8 Allergy status to other drugs, medicaments and biological substances
CPT/HCPCS: 36415; 71045; 80048; 80053; 81001; 84100; 85025; 85610; 87040; 87086; 87633; 87635; J7620; Q0162; U0003

== ENCOUNTER 2019-10-20 09:48 | Emergency (ER) | payer MEDICARE ==
--- NOTE | 2019-10-20 10:26 | RAD ---
XR Pelvis AP STANDARD HISTORY: Pelvic pain, no history of trauma. COMPARISON: 09/14/2019 exam. 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 The femoral component prosthesis is only partially visualized. Vascular calcifications are noted. The bones are demineralized. IMPRESSION: No acute changes.
--- NOTE | 2019-10-20 10:27 | RAD ---
XR Hip Rt 2-3 View HISTORY: Right hip pain. No history of trauma. COMPARISON: None. FINDINGS: Mild arthritic changes of the hip are noted without significant joint space narrowing. Bone s appear slightly demineralized. IMPRESSION: No acute changes.
--- NOTE | 2019-10-20 11:59 | RAD ---
EXAM: XR Lumbar Spine 2 Or 3 View DATE: 10/20/2019 10:53 AM INDICATION: Radicular back pain COMPARISON: CT the abdomen and pelvis dated 07/26/2017 FINDING: There are 5 lumbar type vertebra. There is grade 1 anterolisthesis of L4 and L5. There is s ome moderate facet osteoarthrosis at L3-4 through L5-S1. There is mild multilevel disc degenerative disease most pronounced at L5-4-5 and L5-S1. There is scattered vascular calcifications. There is a l eft hip endoprosthesis. No acute fracture or subluxation is demonstrated. IMPRESSION:No acute fracture or subluxation demonstrated. Moderate lumbar spondylosis.
== END 2019-10-20 13:15 | disposition home or self-care (01) ==
LOC: MADERS 09:48
DX: M25.551 Pain in right hip (principal); M43.10 Spondylolisthesis, site unspecified; M19.90 Unspecified osteoarthritis, unspecified site; I12.9 Hypertensive chronic kidney disease with stage 1 through stage 4 chronic kidney disease, or unspecified chronic kidney disease; N18.3 Chronic kidney disease, stage 3 (moderate); E78.5 Hyperlipidemia, unspecified; E78.00 Pure hypercholesterolemia, unspecified; I48.91 Unspecified atrial fibrillation; I25.10 Atherosclerotic heart disease of native coronary artery without angina pectoris; Z79.01 Long term (current) use of anticoagulants; Z79.82 Long term (current) use of aspirin; Z79.899 Other long term (current) drug therapy
CPT/HCPCS: 72100; 72170

== ENCOUNTER 2019-11-18 10:44 | Outpatient (CLI) | payer MEDICARE ==
[2019-11-18 11:14] LABS: Anion Gap 14 mmol/L (10-20); BUN (Urea Nitrogen) 17 mg/dL (9.8-20.1); Calc. Creatinine Clearance 0 mL/min (70-130); Calcium 8.6 mg/dL (7.8-10.44); Carbon Dioxide 27 mmol/L (23-31); Cardiac Risk 2.1 (Less than 4.5); Chloride 99 mmol/L (98-107); Cholesterol 114 mg/dl (< 200 Desired); Estimated GFR-MDRD 55; Glucose 86 mg/dL (83-110); HDL Cholesterol 54 mg/dL (>60 Neg Risk); LDL Cholesterol, Calculated 50 mg/dL; Potassium 4.7 mmol/L (3.5-5.1); Sodium 135 mmol/L (136-145); Triglycerides 51 mg/dL (Less than 150)
[2019-11-18 11:46] LABS: #Basophils 0.1 thou/uL (0.0-0.2); #Eosinphils 0.3 thou/uL (0.0-0.7); #Monocytes 0.6 thou/uL (0.11-0.59); %Basophils 1.4 % (0.0-1.0); %Lymphocytes 40.9 % (21.0-51.0); %Monocytes 11.1 % (0.0-10.0); %Neutrophils 40.6 % (42.0-75.0); Mean Corpuscular HGB CONC 32.3 g/dL (32.0-36.0); Mean Corpuscular Hemoglobin 33.4 pg (27.0-31.0); Mean Corpuscular Volume 103.5 fL (78.0-98.0); Mean Platelet Volume 6.9 fL (7.4-10.4); Platelet Count 221 thou/uL (130-400); Red Blood Cell (RBC) Count 2.99 mill/uL (4.20-5.40); White Blood Cell (WBC) Count 4.9 thou/uL (4.8-10.8)
== END 2019-11-18 10:45 | disposition home or self-care (01) ==
LOC: MADLABSP 10:44
PROVIDERS: ATTEND Family Medicine
DX: Z51.81 Encounter for therapeutic drug level monitoring (principal); I48.91 Unspecified atrial fibrillation; S72.002D Fracture of unspecified part of neck of left femur, subsequent encounter for closed fracture with routine healing; Z79.01 Long term (current) use of anticoagulants
CPT/HCPCS: 80048; 80061; 85025

== ENCOUNTER 2019-11-19 13:25 | Outpatient (CLI) | payer MEDICARE ==
[2019-11-19 13:50] LABS: INR-International Normal Ratio 2.4; Prothrombin Time 26.3 sec (12.0-14.7)
== END 2019-11-19 13:26 | disposition home or self-care (01) ==
LOC: MADLABSP 13:25
PROVIDERS: ATTEND Family Medicine
DX: Z51.81 Encounter for therapeutic drug level monitoring (principal); I48.91 Unspecified atrial fibrillation; S72.002D Fracture of unspecified part of neck of left femur, subsequent encounter for closed fracture with routine healing; Z79.01 Long term (current) use of anticoagulants
CPT/HCPCS: 85610

== ENCOUNTER 2019-12-23 12:36 | Outpatient (CLI) | payer MEDICARE ==
[2019-12-23 12:49] LABS: INR-International Normal Ratio 2.8; Prothrombin Time 29.5 sec (12.0-14.7)
== END 2019-12-23 12:37 | disposition home or self-care (01) ==
LOC: MADLABSP 12:36
PROVIDERS: ATTEND Family Medicine
DX: S72.002D Fracture of unspecified part of neck of left femur, subsequent encounter for closed fracture with routine healing (principal); I48.20 Chronic atrial fibrillation, unspecified
CPT/HCPCS: 85610

== ENCOUNTER 2020-01-22 12:59 | Outpatient (CLI) | payer MEDICARE ==
[2020-01-22 13:21] LABS: INR-International Normal Ratio 1.7; Prothrombin Time 20.1 sec (12.0-14.7)
== END 2020-01-22 13:00 | disposition home or self-care (01) ==
LOC: MADLABBHPM 12:59
PROVIDERS: ATTEND Family Medicine
DX: Z51.81 Encounter for therapeutic drug level monitoring (principal); Z79.01 Long term (current) use of anticoagulants
CPT/HCPCS: 85610

== ENCOUNTER 2020-02-10 18:51 | Outpatient (CLI) | payer MEDICARE ==
[2020-02-10 19:09] LABS: INR-International Normal Ratio 1.5; Prothrombin Time 18.5 sec (12.0-14.7)
== END 2020-02-10 18:52 | disposition home or self-care (01) ==
LOC: MADLAB 18:51
PROVIDERS: ATTEND Family Medicine
DX: I48.20 Chronic atrial fibrillation, unspecified (principal)
CPT/HCPCS: 85610

== ENCOUNTER 2020-02-24 12:31 | Outpatient (CLI) | payer MEDICARE ==
[2020-02-24 12:43] LABS: INR-International Normal Ratio 2.8; Prothrombin Time 30.1 sec (12.0-14.7)
== END 2020-02-24 12:32 | disposition home or self-care (01) ==
LOC: MADLAB 12:31
PROVIDERS: ATTEND Family Medicine
DX: I48.20 Chronic atrial fibrillation, unspecified (principal)
CPT/HCPCS: 85610

== ENCOUNTER 2020-03-23 11:12 | Emergency (ER) | payer MEDICARE ==
[2020-03-23 12:00] LABS: Bilirubin Negative (Negative); Blood, Urine Trace (Negative); Clarity Clear (Clear); Glucose, Urine (Dipstick) Negative (Negative); Ketone, Urine Negative (Negative); Leukocyte Negative (Negative); Nitrite Negative (Negative); Protein, Urine (Dipstick) Negative (Neg-Trace); Urobilinogen 0.2 mg/dL (Less than 2); pH, Urine 7.5 (5.0-9.0)
[2020-03-23 12:04] LABS: Bacteria/HPF Rare-Few HPF (None Seen); RBC/HPF 0-3 HPF (0-3); Squamous Epithelial 0-3 HPF (0-3); WBC/HPF 0-3 HPF (0-3)
[2020-03-23 12:13] LABS: #Eosinphils 0.1 thou/uL (0.0-0.7); #Lymphocytes 1.2 thou/uL (1.20-3.40); #Monocytes 0.6 thou/uL (0.11-0.59); #Neutrophils 5.7 thou/uL (1.40-6.50); %Basophils 0.6 % (0.0-1.0); %Eosinophils 1.5 % (0.0-10.0); %Lymphocytes 15.5 % (21.0-51.0); %Monocytes 7.6 % (0.0-10.0); %Neutrophils 74.7 % (42.0-75.0); Hemoglobin 10.8 g/dL (12.0-16.0); Mean Corpuscular HGB CONC 31.5 g/dL (32.0-36.0); Mean Corpuscular Hemoglobin 32.5 pg (27.0-31.0); Mean Platelet Volume 7.7 fL (7.4-10.4); Platelet Count 142 thou/uL (130-400); RBC Distribution Width 13.7 % (11.5-14.5); Red Blood Cell (RBC) Count 3.34 mill/uL (4.20-5.40); White Blood Cell (WBC) Count 7.7 thou/uL (4.8-10.8)
[2020-03-23 12:28] LABS: ALT (SGPT) 20 U/L (8-55); AST (SGOT) 29 U/L (5-34); Albumin 3.7 g/dL (3.4-4.8); Alkaline Phosphatase 83 U/L (40-110); Anion Gap 15 mmol/L (10-20); BUN (Urea Nitrogen) 23 mg/dL (9.8-20.1); Bilirubin, Total 0.9 mg/dL (0.2-1.2); Calc. Creatinine Clearance 0 mL/min (70-130); Calcium 8.7 mg/dL (7.8-10.44); Carbon Dioxide 28 mmol/L (23-31); Chloride 100 mmol/L (98-107); Globulin 3.2 g/dL (2.4-3.5); Glucose 125 mg/dL (83-110); Potassium 4.3 mmol/L (3.5-5.1); Protein, Total 6.9 g/dL (6.0-8.3); Sodium 139 mmol/L (136-145)
[2020-03-23 12:58] LABS: INR-International Normal Ratio 3.9
[2020-03-23 12:59] LABS: PTT 77.9 sec (22.9-36.1)
[2020-03-23] MEDS ORDERED: Furosemide 40 MG/4 ML VIAL ONE (13:04)
--- NOTE | 2020-03-23 13:51 | RAD ---
TWO VIEW CHEST: HISTORY: Dyspnea. COMPARISON: Portable film of 09/18/2019. FINDINGS: Cardiomegaly with postop sternotomy change again noted. There is mild vascular congestion. Intersti tial prominence bilaterally may represent edema or superimposed interstitial infiltrate. Hazy densit y in the right mid lung may represent hazy ground-glass infiltrate or edema. There are small bilater al effusions. Pacemaker leads are unchanged. IMPRESSION: Bilateral effusions. Cardiomegaly and mild vascular congestion with interstitial prominence and hazy opacity in the right mid lung which could represent edema or a superimposed infiltrate. POS: [facility]
== END 2020-03-23 14:20 | disposition home or self-care (01) ==
LOC: MADERS 11:12
DX: I13.0 Hypertensive heart and chronic kidney disease with heart failure and stage 1 through stage 4 chronic kidney disease, or unspecified chronic kidney disease (principal); I50.1 Left ventricular failure, unspecified; N18.30 Chronic kidney disease, stage 3 unspecified; M19.90 Unspecified osteoarthritis, unspecified site; M43.10 Spondylolisthesis, site unspecified; E78.5 Hyperlipidemia, unspecified; E78.00 Pure hypercholesterolemia, unspecified; I25.10 Atherosclerotic heart disease of native coronary artery without angina pectoris
CPT/HCPCS: 36415; 71046; 80053; 81003; 81015; 83605; 83880; 84443; 84484; 85025; 85379; 85610; 85730; 87040; 87804; 93005; 94760; 96374; J1940

== ENCOUNTER 2020-04-20 12:50 | Outpatient (CLI) | payer MEDICARE ==
[2020-04-20 13:29] LABS: INR-International Normal Ratio 2.2; Prothrombin Time 24.7 sec (12.0-14.7)
[2020-04-20 13:31] LABS: ALT (SGPT) 18 U/L (8-55); AST (SGOT) 29 U/L (5-34); Albumin 3.7 g/dL (3.4-4.8); Alkaline Phosphatase 90 U/L (40-110); Anion Gap 15 mmol/L (10-20); BUN (Urea Nitrogen) 21 mg/dL (9.8-20.1); Bilirubin, Total 0.4 mg/dL (0.2-1.2); Calc. Creatinine Clearance 0 mL/min (70-130); Calcium 8.9 mg/dL (7.8-10.44); Carbon Dioxide 29 mmol/L (23-31); Chloride 103 mmol/L (98-107); Globulin 2.9 g/dL (2.4-3.5); Glucose 103 mg/dL (83-110); Potassium 4.7 mmol/L (3.5-5.1); Protein, Total 6.6 g/dL (5.8-8.1); Sodium 142 mmol/L (136-145)
== END 2020-04-20 12:51 | disposition home or self-care (01) ==
LOC: MADLAB 12:50
PROVIDERS: ATTEND Family Medicine
DX: I13.0 Hypertensive heart and chronic kidney disease with heart failure and stage 1 through stage 4 chronic kidney disease, or unspecified chronic kidney disease (principal); N18.9 Chronic kidney disease, unspecified; I50.9 Heart failure, unspecified
CPT/HCPCS: 80053; 85610

== ENCOUNTER 2020-04-27 11:23 | Outpatient (CLI) | payer MEDICARE ==
[2020-04-27 11:56] LABS: INR-International Normal Ratio 2.4
== END 2020-04-27 11:24 | disposition home or self-care (01) ==
LOC: MADLAB 11:23
PROVIDERS: ATTEND Family Medicine
DX: I13.0 Hypertensive heart and chronic kidney disease with heart failure and stage 1 through stage 4 chronic kidney disease, or unspecified chronic kidney disease (principal); N18.9 Chronic kidney disease, unspecified; I50.9 Heart failure, unspecified
CPT/HCPCS: 85610

== ENCOUNTER 2020-05-18 17:18 | Outpatient (CLI) | payer MEDICARE ==
[2020-05-18 17:45] LABS: INR-International Normal Ratio 2.5; Prothrombin Time 27.5 sec (12.0-14.7)
== END 2020-05-18 17:19 | disposition home or self-care (01) ==
LOC: MADLAB 17:18
PROVIDERS: ATTEND Family Medicine
DX: I50.9 Heart failure, unspecified (principal); I30.0 Acute nonspecific idiopathic pericarditis
CPT/HCPCS: 85610

== ENCOUNTER 2020-06-08 15:22 | Outpatient (CLI) | payer MEDICARE ==
[2020-06-09 06:46] LABS: INR-International Normal Ratio 1.8; Prothrombin Time 21.4 sec (12.0-14.7)
== END 2020-06-08 15:23 | disposition home or self-care (01) ==
LOC: MADLAB 15:22
PROVIDERS: ATTEND Family Medicine
DX: I48.20 Chronic atrial fibrillation, unspecified (principal)
CPT/HCPCS: 85610

== ENCOUNTER 2020-06-22 13:32 | Outpatient (CLI) | payer MEDICARE ==
[2020-06-22 13:54] LABS: INR-International Normal Ratio 1.6; Prothrombin Time 19.4 sec (12.0-14.7)
== END 2020-06-22 13:33 | disposition home or self-care (01) ==
LOC: MADLAB 13:32
PROVIDERS: ATTEND Family Medicine
DX: S72.002D Fracture of unspecified part of neck of left femur, subsequent encounter for closed fracture with routine healing (principal); I48.20 Chronic atrial fibrillation, unspecified
CPT/HCPCS: 85610

== ENCOUNTER 2020-07-07 10:42 | Outpatient (CLI) | payer MEDICARE ==
[2020-07-07 10:52] LABS: INR-International Normal Ratio 1.1; Prothrombin Time 14.5 sec (12.0-14.7)
== END 2020-07-07 10:43 | disposition home or self-care (01) ==
LOC: MADLAB 10:42
PROVIDERS: ATTEND Family Medicine
DX: I48.20 Chronic atrial fibrillation, unspecified (principal); S72.002D Fracture of unspecified part of neck of left femur, subsequent encounter for closed fracture with routine healing
CPT/HCPCS: 85610

== ENCOUNTER 2020-08-02 15:03 | Outpatient (CLI) | payer MEDICARE ==
[2020-08-02 15:10] LABS: INR-International Normal Ratio 0.9; Prothrombin Time 12.6 sec (12.0-14.7)
== END 2020-08-02 15:04 | disposition home or self-care (01) ==
LOC: MADLAB 15:03
DX: I48.20 Chronic atrial fibrillation, unspecified (principal)
CPT/HCPCS: 85610

== ENCOUNTER 2020-09-30 12:53 | Outpatient (CLI) | payer MEDICARE ==
[2020-09-30 13:17] LABS: INR-International Normal Ratio 2.9
== END 2020-09-30 12:54 | disposition home or self-care (01) ==
LOC: MADLAB 12:53
PROVIDERS: ATTEND Family Medicine
DX: Z51.81 Encounter for therapeutic drug level monitoring (principal); I48.20 Chronic atrial fibrillation, unspecified; Z79.01 Long term (current) use of anticoagulants
CPT/HCPCS: 85610

== ENCOUNTER 2020-10-26 14:05 | Outpatient (CLI) | payer MEDICARE ==
[2020-10-26 14:37] LABS: #Eosinphils 0.3 thou/uL (0.0-0.7); #Lymphocytes 1.9 thou/uL (1.20-3.40); #Monocytes 0.7 thou/uL (0.11-0.59); #Neutrophils 4.1 thou/uL (1.40-6.50); %Basophils 0.5 % (0.0-1.0); %Eosinophils 4.2 % (0.0-10.0); %Lymphocytes 26.6 % (21.0-51.0); %Monocytes 9.6 % (0.0-10.0); %Neutrophils 59.2 % (42.0-75.0); Hemoglobin 13.3 g/dL (12.0-16.0); Mean Corpuscular HGB CONC 31.1 g/dL (32.0-36.0); Mean Corpuscular Hemoglobin 32.2 pg (27.0-31.0); Mean Corpuscular Volume 103.7 fL (78.0-98.0); Mean Platelet Volume 8.9 fL (7.4-10.4); Platelet Count 161 thou/uL (130-400); RBC Distribution Width 12.9 % (11.5-14.5); Red Blood Cell (RBC) Count 4.14 mill/uL (4.20-5.40)
[2020-10-26 14:51] LABS: Anion Gap 17 mmol/L (10-20); BUN (Urea Nitrogen) 26 mg/dL (9.8-20.1); Calc. Creatinine Clearance 0 mL/min (70-130); Calcium 9.2 mg/dL (7.8-10.44); Carbon Dioxide 28 mmol/L (23-31); Chloride 99 mmol/L (98-107); Glucose 157 mg/dL (83-110); Potassium 4.5 mmol/L (3.5-5.1); Sodium 139 mmol/L (136-145)
== END 2020-10-26 14:06 | disposition home or self-care (01) ==
LOC: MADLAB 14:05
PROVIDERS: ATTEND Internal Medicine Cardiovascular Disease
DX: I13.0 Hypertensive heart and chronic kidney disease with heart failure and stage 1 through stage 4 chronic kidney disease, or unspecified chronic kidney disease (principal); N18.9 Chronic kidney disease, unspecified; I50.9 Heart failure, unspecified; I48.20 Chronic atrial fibrillation, unspecified
CPT/HCPCS: 80048; 83880; 85025

== ENCOUNTER 2020-11-16 19:42 | Outpatient (CLI) | payer MEDICARE ==
[2020-11-16 20:11] LABS: Prothrombin Time 31.6 sec (12.0-14.7)
== END 2020-11-16 19:43 | disposition home or self-care (01) ==
LOC: MADLAB 19:42
PROVIDERS: ATTEND Family Medicine
DX: I13.0 Hypertensive heart and chronic kidney disease with heart failure and stage 1 through stage 4 chronic kidney disease, or unspecified chronic kidney disease (principal); I50.9 Heart failure, unspecified; N18.9 Chronic kidney disease, unspecified; I48.20 Chronic atrial fibrillation, unspecified
CPT/HCPCS: 85610

== ENCOUNTER 2020-12-13 13:15 | Outpatient (CLI) | payer MEDICARE ==
[2020-12-13 13:44] LABS: INR-International Normal Ratio 2.7; Prothrombin Time 28.6 sec (12.0-14.7)
[2020-12-13 13:51] LABS: Anion Gap 17 mmol/L (10-20); BUN (Urea Nitrogen) 25 mg/dL (9.8-20.1); Calc. Creatinine Clearance 0 mL/min (70-130); Calcium 9.3 mg/dL (7.8-10.44); Carbon Dioxide 28 mmol/L (23-31); Chloride 98 mmol/L (98-107); Glucose 140 mg/dL (83-110); Potassium 4.2 mmol/L (3.5-5.1); Sodium 139 mmol/L (136-145)
== END 2020-12-13 13:16 | disposition home or self-care (01) ==
LOC: MADLAB 13:15
PROVIDERS: ATTEND Family Medicine
DX: I48.20 Chronic atrial fibrillation, unspecified (principal); I13.0 Hypertensive heart and chronic kidney disease with heart failure and stage 1 through stage 4 chronic kidney disease, or unspecified chronic kidney disease; I50.9 Heart failure, unspecified; N18.9 Chronic kidney disease, unspecified
CPT/HCPCS: 80048; 83880; 85610

== ENCOUNTER 2021-01-10 13:26 | Outpatient (CLI) | payer MEDICARE ==
[2021-01-10 13:55] LABS: INR-International Normal Ratio 1.9; Prothrombin Time 22.1 sec (12.0-14.7)
[2021-01-10 14:22] LABS: Anion Gap 17 mmol/L (10-20); BUN (Urea Nitrogen) 24 mg/dL (9.8-20.1); Calc. Creatinine Clearance 0 mL/min (70-130); Calcium 9.3 mg/dL (7.8-10.44); Carbon Dioxide 28 mmol/L (23-31); Chloride 99 mmol/L (98-107); Glucose 84 mg/dL (83-110); Potassium 4.1 mmol/L (3.5-5.1); Sodium 140 mmol/L (136-145)
== END 2021-01-10 13:27 | disposition home or self-care (01) ==
LOC: MADLAB 13:26
PROVIDERS: ATTEND Family Medicine
DX: I48.20 Chronic atrial fibrillation, unspecified (principal); I13.0 Hypertensive heart and chronic kidney disease with heart failure and stage 1 through stage 4 chronic kidney disease, or unspecified chronic kidney disease; I50.9 Heart failure, unspecified; N18.9 Chronic kidney disease, unspecified
CPT/HCPCS: 80048; 83880; 85610

== ENCOUNTER 2021-02-10 14:29 | Outpatient (CLI) | payer MEDICARE ==
[2021-02-10 14:53] LABS: INR-International Normal Ratio 1.8; Prothrombin Time 21.6 sec (12.0-14.7)
== END 2021-02-10 14:30 | disposition home or self-care (01) ==
LOC: MADLAB 14:29
PROVIDERS: ATTEND Family Medicine
DX: I48.20 Chronic atrial fibrillation, unspecified (principal); I25.10 Atherosclerotic heart disease of native coronary artery without angina pectoris; I11.0 Hypertensive heart disease with heart failure; I50.32 Chronic diastolic (congestive) heart failure
CPT/HCPCS: 36415; 85610

== ENCOUNTER 2021-03-16 13:04 | Outpatient (CLI) | payer MEDICARE ==
[2021-03-16 13:36] LABS: INR-International Normal Ratio 1.9; Prothrombin Time 22.5 sec (12.0-14.7)
== END 2021-03-16 13:05 | disposition home or self-care (01) ==
LOC: MADLAB 13:04
PROVIDERS: ATTEND Family Medicine
DX: Z51.81 Encounter for therapeutic drug level monitoring (principal); I48.20 Chronic atrial fibrillation, unspecified; Z79.01 Long term (current) use of anticoagulants
CPT/HCPCS: 85610

== ENCOUNTER 2021-04-05 12:40 | Outpatient (CLI) | payer MEDICARE ==
[2021-04-05 13:22] LABS: ALT (SGPT) 24 U/L (8-55); AST (SGOT) 30 U/L (5-34); Albumin 4.1 g/dL (3.4-4.8); Alkaline Phosphatase 71 U/L (40-110); Anion Gap 13 mmol/L (10-20); BUN (Urea Nitrogen) 26 mg/dL (9.8-20.1); Bilirubin, Total 0.8 mg/dL (0.2-1.2); Calc. Creatinine Clearance 0 mL/min (70-130); Calcium 9.9 mg/dL (7.8-10.44); Carbon Dioxide 34 mmol/L (23-31); Cardiac Risk 2.8 (Less than 4.5); Chloride 100 mmol/L (98-107); Cholesterol 158 mg/dl (< 200 Desired); Globulin 3.1 g/dL (2.4-3.5); Glucose 97 mg/dL (83-110); HDL Cholesterol 57 mg/dL (>60 Neg Risk); LDL Cholesterol, Calculated 82 mg/dL; Protein, Total 7.2 g/dL (5.8-8.1); Sodium 143 mmol/L (136-145); Triglycerides 96 mg/dL (Less than 150)
== END 2021-04-05 12:41 | disposition home or self-care (01) ==
LOC: MADLAB 12:40
PROVIDERS: ATTEND Internal Medicine Cardiovascular Disease
DX: I11.0 Hypertensive heart disease with heart failure (principal); I50.32 Chronic diastolic (congestive) heart failure; I48.20 Chronic atrial fibrillation, unspecified
CPT/HCPCS: 80053; 80061; 83880

== ENCOUNTER 2021-04-19 13:43 | Outpatient (CLI) | payer MEDICARE ==
[2021-04-19 14:26] LABS: INR-International Normal Ratio 2.2
== END 2021-04-19 13:44 | disposition home or self-care (01) ==
LOC: MADLAB 13:43
PROVIDERS: ATTEND Family Medicine
DX: I11.0 Hypertensive heart disease with heart failure (principal); I50.32 Chronic diastolic (congestive) heart failure; I48.20 Chronic atrial fibrillation, unspecified; I25.10 Atherosclerotic heart disease of native coronary artery without angina pectoris
CPT/HCPCS: 85610

== ENCOUNTER 2021-05-16 11:18 | Outpatient (CLI) | payer MEDICARE ==
[2021-05-16 11:34] LABS: Prothrombin Time 22.9 sec (12.0-14.7)
== END 2021-05-16 11:19 | disposition home or self-care (01) ==
LOC: MADLAB 11:18
PROVIDERS: ATTEND Family Medicine
DX: I11.0 Hypertensive heart disease with heart failure (principal); I50.32 Chronic diastolic (congestive) heart failure
CPT/HCPCS: 85610

== ENCOUNTER 2021-08-29 11:52 | Outpatient (CLI) | payer MEDICARE ==
[2021-08-29 12:08] LABS: INR-International Normal Ratio 2.3; Prothrombin Time 25.7 sec (12.0-14.7)
== END 2021-08-29 11:53 | disposition home or self-care (01) ==
LOC: MADLAB 11:52
PROVIDERS: ATTEND Family Medicine
DX: I69.398 Other sequelae of cerebral infarction (principal)
CPT/HCPCS: 85610

== ENCOUNTER 2021-10-01 16:59 | Emergency (ER) | payer MEDICARE | END 2021-10-01 18:31 | disposition home or self-care (01) | LOC: MADERS 16:59 | DX: U07.1 COVID-19 (principal); J02.9 Acute pharyngitis, unspecified; J30.1 Allergic rhinitis due to pollen; I12.9 Hypertensive chronic kidney disease with stage 1 through stage 4 chronic kidney disease, or unspecified chronic kidney disease; N18.30 Chronic kidney disease, stage 3 unspecified; M19.90 Unspecified osteoarthritis, unspecified site; E78.5 Hyperlipidemia, unspecified; E78.00 Pure hypercholesterolemia, unspecified; I48.91 Unspecified atrial fibrillation; I25.10 Atherosclerotic heart disease of native coronary artery without angina pectoris; G40.409 Other generalized epilepsy and epileptic syndromes, not intractable, without status epilepticus; Z95.0 Presence of cardiac pacemaker; Z79.82 Long term (current) use of aspirin; Z79.01 Long term (current) use of anticoagulants; Z79.899 Other long term (current) drug therapy | CPT/HCPCS: 87081; 87430; 99283; U0003; U0005 ==

== ENCOUNTER 2021-11-13 11:30 | Emergency (ER) | payer MEDICARE ==
[2021-11-13] MEDS ORDERED: Ketorolac Tromethamine 30 MG/ML VIAL ONE (12:55)
== END 2021-11-13 13:05 | disposition home or self-care (01) ==
LOC: MADERS 11:30
DX: R51.9 Headache, unspecified (principal); I12.9 Hypertensive chronic kidney disease with stage 1 through stage 4 chronic kidney disease, or unspecified chronic kidney disease; N18.30 Chronic kidney disease, stage 3 unspecified; M19.90 Unspecified osteoarthritis, unspecified site; E78.00 Pure hypercholesterolemia, unspecified; I48.91 Unspecified atrial fibrillation; I25.10 Atherosclerotic heart disease of native coronary artery without angina pectoris; Z86.16 Personal history of COVID-19; Z95.0 Presence of cardiac pacemaker; Z79.82 Long term (current) use of aspirin; Z79.01 Long term (current) use of anticoagulants; Z79.899 Other long term (current) drug therapy
CPT/HCPCS: 70450; 96374; J1885

== ENCOUNTER 2021-11-15 10:51 | Outpatient (CLI) | payer MEDICARE | END 2021-11-15 10:52 | disposition home or self-care (01) | LOC: MADLABBHPM 10:51 | PROVIDERS: ATTEND Family Medicine | DX: R51.9 Headache, unspecified (principal) | CPT/HCPCS: 85652 ==

== ENCOUNTER 2022-01-17 12:20 | Outpatient (CLI) | payer MEDICARE ==
[2022-01-17 13:11] LABS: ALT (SGPT) 22 U/L (8-55); AST (SGOT) 30 U/L (5-34); Albumin 3.7 g/dL (3.4-4.8); Alkaline Phosphatase 71 U/L (40-110); Anion Gap 13 mmol/L (10-20); BUN (Urea Nitrogen) 36 mg/dL (9.8-20.1); Bilirubin, Total 0.4 mg/dL (0.2-1.2); Calc. Creatinine Clearance 0 mL/min (70-130); Carbon Dioxide 29 mmol/L (23-31); Cardiac Risk 2.5 (Less than 4.5); Chloride 103 mmol/L (98-107); Cholesterol 111 mg/dl (< 200 Desired); Estimated GFR 32; Glucose 94 mg/dL (83-110); HDL Cholesterol 44 mg/dL (>60 Neg Risk); LDL Cholesterol, Calculated 57 mg/dL; Potassium 4.3 mmol/L (3.5-5.1); Protein, Total 6.7 g/dL (5.8-8.1); Sodium 141 mmol/L (136-145); Triglycerides 51 mg/dL (Less than 150)
== END 2022-01-17 12:21 | disposition home or self-care (01) ==
LOC: MADLAB 12:20
PROVIDERS: ATTEND Internal Medicine Cardiovascular Disease
DX: I48.0 Paroxysmal atrial fibrillation (principal); I69.398 Other sequelae of cerebral infarction
CPT/HCPCS: 80053; 80061

== ENCOUNTER 2022-02-23 12:43 | Outpatient (CLI) | payer MEDICARE ==
[2022-02-23 12:52] LABS: INR-International Normal Ratio 2.7; Prothrombin Time 30.1 sec (12.0-14.7)
== END 2022-02-23 12:44 | disposition home or self-care (01) ==
LOC: MADLAB 12:43
PROVIDERS: ATTEND Family Medicine
DX: I48.0 Paroxysmal atrial fibrillation (principal); I69.398 Other sequelae of cerebral infarction
CPT/HCPCS: 85610